=== PATIENT | female | born 1940 | race Caucasian/White ===

== ENCOUNTER → 2019-12-12 00:01 | Outpatient (BNVA) | payer MEDICARE, SELFPAY | PROVIDERS: Family Provider Family Medicine; PCP Family Medicine; Visit Provider Family Medicine | DX: E78.5 Hyperlipidemia, unspecified (principal); E03.9 Hypothyroidism, unspecified; M17.0 Bilateral primary osteoarthritis of knee; I10 Essential (primary) hypertension; M79.18 Myalgia, other site; G89.29 Other chronic pain | CPT/HCPCS: 80053; 80061; 84443 ==

== ENCOUNTER → 2020-06-06 11:33 | Outpatient (BNVA) | payer MEDICARE, SELFPAY | PROVIDERS: Family Provider Family Medicine; PCP Family Medicine; Visit Provider Family Medicine | DX: E03.9 Hypothyroidism, unspecified (principal); I10 Essential (primary) hypertension; M10.9 Gout, unspecified; E78.5 Hyperlipidemia, unspecified; E55.9 Vitamin D deficiency, unspecified | CPT/HCPCS: 80053; 80061; 82306; 84443; 84550; 85025 ==

== ENCOUNTER → 2020-12-18 16:03 | Outpatient (BNVA) | payer MEDICARE, SELFPAY | PROVIDERS: Family Provider Family Medicine; PCP Family Medicine; Visit Provider Family Medicine | DX: E03.9 Hypothyroidism, unspecified (principal); E78.5 Hyperlipidemia, unspecified; I10 Essential (primary) hypertension; M17.0 Bilateral primary osteoarthritis of knee | CPT/HCPCS: 80053; 80061; 84443; 85025 ==

== ENCOUNTER → 2021-03-17 16:28 | Outpatient (BNVA) | payer MEDICARE, SELFPAY | PROVIDERS: Family Provider Family Medicine; PCP Family Medicine; Visit Provider Family Medicine | DX: N39.0 Urinary tract infection, site not specified (principal); R31.9 Hematuria, unspecified | CPT/HCPCS: 81003; 87077; 87086; 87184 ==

== ENCOUNTER → 2021-06-26 10:18 | Outpatient (BNVA) | payer MEDICARE, SELFPAY | PROVIDERS: Family Provider Family Medicine; PCP Family Medicine; Visit Provider Nurse Practitioner Family | DX: R06.02 Shortness of breath (principal); N39.0 Urinary tract infection, site not specified; L98.9 Disorder of the skin and subcutaneous tissue, unspecified; E11.9 Type 2 diabetes mellitus without complications; I10 Essential (primary) hypertension; Z68.41 Body mass index [BMI] 40.0-44.9, adult; I70.90 Unspecified atherosclerosis | CPT/HCPCS: 71046; 80053; 83036 ==

== ENCOUNTER 2021-12-10 13:04 | Outpatient (CLI) | payer MEDICARE, SELFPAY ==
--- NOTE | 2021-12-10 13:30 | USCV_ITS ---
Catherine Seymour Age: 81 Gender: F : 1940 Exam Date: 12/10/2021 13:36 Ordering Phys: Tony Jauregui M.D ([email or web address]) Technologist: [place] [facility] [place]: murmur BP: 132 / 75 HR: 80 Rhythm: Sinus Technical Quality: Adequate MEASUREMENTS (Male / Female) Normal Values 2D ECHO LV Diastolic Diameter PLAX 4.0 cm 4.2 - 5.9 / 3.9 - 5.3 cm LV Systolic Diameter PLAX 2.3 cm IVS Diastolic Thickness 1.1 cm 0.6 - 1.0 / 0.6 - 0.9 cm IVS Systolic Thickness 1.5 cm LVPW Diastolic Thickness 0.9 cm 0.6 - 1.0 / 0.6 - 0.9 cm LVPW Systolic Thickness 1.1 cm LVOT Diameter 2.0 cm LV Ejection Fraction 2D Teich 73.8 % LV Ejection Fraction MOD 2C 69.3 % LV Ejection Fraction 2C AL 72.2 % LA Diameter 4.3 cm Aorta at Sinotubular Diameter 1.9 cm IVC Diameter 1.8 cm M-MODE Aortic Annulus Diameter 2.9 cm LA Ao Ratio MM 1.7 DOPPLER AV Peak Velocity 155.3 cm/s LVOT Peak Velocity 110.0 cm/s AV Area Cont Eq vti 2.4 cm squared AV Area Cont Eq pk 2.3 cm squared MV Area PHT 5.0 cm squared Mitral E to A Ratio 0.9 MV E' Velocity 39.5 cm/s Mitral E to MV E' Ratio 8.0 Mitral E to LV E' Lateral Ratio 6.6 Mitral E to LV E' Septal Ratio 10.4 TR Peak Velocity 130.0 cm/s TR Peak Gradient 6.8 mmHg Right Atrial Pressure 3.0 mmHg Pulmonary Artery Systolic Pressu 9.8 mmHg PV Peak Velocity 89.0 cm/s FINDINGS Left Ventricle Normal left ventricular size. LV systolic function is normal with EF of 55-60%. No regional wall motion abnormalities. Grade 1 diastolic dysfunction Right Ventricle The right ventricle is normal in size and function. Right Atrium The right atrium is normal in size. Left Atrium The left atrium is dilated Mitral Valve Structurally normal mitral valve without significant stenosis or prolapse. There is mild mitral regurgitation. Aortic Valve Structurally normal aortic valve without significant sclerosis or stenosis. There is no aortic regurgitation. Tricuspid Valve Structurally normal tricuspid valve without significant stenosis. Trace tricuspid regurgitation. Insufficient TR jet to calculate RVSP Pulmonic Valve Not well visualized Pericardium Normal pericardium without effusion. Aorta Normal ascending aorta dimension. IVC CONCLUSIONS LV systolic function is normal with EF of 55-60% Grade 1 diastolic dysfunction Left atrium is dilated Mild mitral regurgitation Trace tricuspid regurgitation No comparison studies are available Tony Jauregui MD (Electronically Signed) Final Date: 20 Dec 2021 23:12 S
== END 2021-12-10 13:05 | disposition home or self-care (01) ==
LOC: RAD 13:08
PROVIDERS: Family Provider Family Medicine; PCP Family Medicine; Visit Provider Internal Medicine
DX: I25.10 Atherosclerotic heart disease of native coronary artery without angina pectoris (principal); R06.02 Shortness of breath; G47.33 Obstructive sleep apnea (adult) (pediatric); E66.9 Obesity, unspecified; I10 Essential (primary) hypertension; E78.5 Hyperlipidemia, unspecified; F41.9 Anxiety disorder, unspecified; E11.9 Type 2 diabetes mellitus without complications; Z68.41 Body mass index [BMI] 40.0-44.9, adult
CPT/HCPCS: 93306; 99214

== ENCOUNTER → 2022-01-13 14:06 | Outpatient (BNVA) | payer MEDICARE, SELFPAY | PROVIDERS: Family Provider Family Medicine; PCP Family Medicine; Visit Provider Family Medicine | DX: E03.9 Hypothyroidism, unspecified (principal); E11.9 Type 2 diabetes mellitus without complications; E55.9 Vitamin D deficiency, unspecified; E78.5 Hyperlipidemia, unspecified | CPT/HCPCS: 80053; 80061; 82306; 83036; 84443; 84550; 85025 ==

== ENCOUNTER → 2022-01-23 11:15 | Outpatient (BNVA) | payer MEDICARE, SELFPAY | PROVIDERS: Family Provider Family Medicine; PCP Family Medicine; Visit Provider Family Medicine | DX: E87.6 Hypokalemia (principal) | CPT/HCPCS: 84132 ==

== ENCOUNTER → 2022-02-03 10:23 | Outpatient (BNVA) | payer MEDICARE, SELFPAY | PROVIDERS: Family Provider Family Medicine; PCP Family Medicine; Visit Provider Family Medicine | DX: E87.6 Hypokalemia (principal) | CPT/HCPCS: 80048 ==

== ENCOUNTER → 2022-03-18 10:17 | Outpatient (BNVA) | payer MEDICARE, SELFPAY | PROVIDERS: Family Provider Family Medicine; PCP Family Medicine; Visit Provider Family Medicine | DX: E87.6 Hypokalemia (principal) | CPT/HCPCS: 80048 ==

== ENCOUNTER → 2022-03-27 11:23 | Outpatient (BNVA) | payer MEDICARE, SELFPAY | PROVIDERS: Family Provider Family Medicine; PCP Family Medicine; Visit Provider Family Medicine | DX: N39.0 Urinary tract infection, site not specified (principal); Z79.891 Long term (current) use of opiate analgesic; M17.0 Bilateral primary osteoarthritis of knee | CPT/HCPCS: 80307; 81003 ==

== ENCOUNTER → 2022-08-04 13:03 | Outpatient (BNVA) | payer MEDICARE, SELFPAY | PROVIDERS: Family Provider Family Medicine; PCP Family Medicine; Visit Provider Internal Medicine | DX: I25.10 Atherosclerotic heart disease of native coronary artery without angina pectoris (principal); G47.33 Obstructive sleep apnea (adult) (pediatric); E66.9 Obesity, unspecified; Z68.41 Body mass index [BMI] 40.0-44.9, adult; E78.5 Hyperlipidemia, unspecified; F41.9 Anxiety disorder, unspecified; I12.9 Hypertensive chronic kidney disease with stage 1 through stage 4 chronic kidney disease, or unspecified chronic kidney disease; E11.22 Type 2 diabetes mellitus with diabetic chronic kidney disease; N18.9 Chronic kidney disease, unspecified; Z79.84 Long term (current) use of oral hypoglycemic drugs | CPT/HCPCS: 99214 ==

== ENCOUNTER → 2022-10-09 11:15 | Outpatient (BNVA) | payer MEDICARE, SELFPAY | PROVIDERS: Family Provider Family Medicine; PCP Family Medicine; Visit Provider Family Medicine | DX: E03.9 Hypothyroidism, unspecified (principal); E78.5 Hyperlipidemia, unspecified; G47.00 Insomnia, unspecified; E11.22 Type 2 diabetes mellitus with diabetic chronic kidney disease; I12.9 Hypertensive chronic kidney disease with stage 1 through stage 4 chronic kidney disease, or unspecified chronic kidney disease; N18.9 Chronic kidney disease, unspecified | CPT/HCPCS: 80053; 80061; 83036; 84443; 84550; 85025 ==

== ENCOUNTER → 2024-04-18 16:00 | Outpatient (BNVA) | payer MEDICARE, SELFPAY | PROVIDERS: Family Provider Family Medicine; PCP Family Medicine; Visit Provider Family Medicine | DX: I10 Essential (primary) hypertension (principal); G47.00 Insomnia, unspecified; E78.5 Hyperlipidemia, unspecified; E03.9 Hypothyroidism, unspecified; N18.9 Chronic kidney disease, unspecified | CPT/HCPCS: 80053; 80061; 84443; 85025 ==

== ENCOUNTER → 2024-06-01 11:13 | Outpatient (BNVA) | payer MEDICARE, SELFPAY | PROVIDERS: Family Provider Family Medicine; PCP Family Medicine; Visit Provider Family Medicine | DX: E03.9 Hypothyroidism, unspecified (principal); N18.9 Chronic kidney disease, unspecified; R74.8 Abnormal levels of other serum enzymes; D72.829 Elevated white blood cell count, unspecified | CPT/HCPCS: 80053; 84443; 85025 ==

== ENCOUNTER → 2024-06-05 08:41 | Outpatient (BNVA) | payer MEDICARE, SELFPAY | PROVIDERS: Family Provider Family Medicine; PCP Family Medicine; Visit Provider Family Medicine | DX: R74.8 Abnormal levels of other serum enzymes (principal); R74.01 Elevation of levels of liver transaminase levels | CPT/HCPCS: 80074; 82728; 82977; 83540; 84466; 85610 ==

== ENCOUNTER 2024-06-16 10:03 | Outpatient (CLI) | payer MEDICARE, SELFPAY ==
--- NOTE | 2024-06-16 10:15 | USR_ITS ---
PROCEDURE INFORMATION: Exam: US Abdomen; Limited Exam date and time: 06/16/2024 10:43 AM Age: 83 years old Clinical indication: Abnormal findings; Abnormal lab test; Elevated liver enzymes TECHNIQUE: Imaging protocol: Real time ultrasound of the abdomen with image documentation. Limited exam focused on the region of clinical interest. COMPARISON: No relevant prior studies available. FINDINGS: Liver: Liver is normal in size. No mass. Portal vein is normal. Gallbladder: History of cholecystectomy Pancreas: The pancreas is obscured by bowel gas. Right kidney: No mass. No hydronephrosis. Cortical thinning with the cortex measuring about 9 mm Other findings: Aorta and inferior vena cava are normal as visualized. US/US liver [id number] IMPRESSION: Nonacute findings.
== END 2024-06-16 10:04 | disposition home or self-care (01) ==
PROVIDERS: Family Provider Family Medicine; PCP Family Medicine; Visit Provider Family Medicine
DX: R74.8 Abnormal levels of other serum enzymes (principal); Z90.710 Acquired absence of both cervix and uterus
CPT/HCPCS: 76705

== ENCOUNTER 2024-08-23 20:03 | Outpatient (CLI) | payer MEDICARE, SELFPAY | END 2024-08-23 20:04 | disposition home or self-care (01) | LOC: SLEEP 20:04 | PROVIDERS: Family Provider Family Medicine; Visit Provider Family Medicine | DX: G47.33 Obstructive sleep apnea (adult) (pediatric) (principal) | CPT/HCPCS: 95811 ==

== ENCOUNTER → 2024-11-13 14:45 | Outpatient (BNVA) | payer MEDICARE, SELFPAY | PROVIDERS: PCP Nurse Practitioner Family; Visit Provider Nurse Practitioner Family | DX: I10 Essential (primary) hypertension (principal); E11.9 Type 2 diabetes mellitus without complications; G47.00 Insomnia, unspecified; N18.9 Chronic kidney disease, unspecified; E78.5 Hyperlipidemia, unspecified; G47.33 Obstructive sleep apnea (adult) (pediatric) | CPT/HCPCS: 80053; 80061; 82607; 82977; 83036; 84443; 85025 ==

== ENCOUNTER 2025-02-23 11:40 | Inpatient (IN) | payer MEDICARE, SELFPAY ==
[2025-02-23] VITALS (18 sets, daily range): BP systolic 90–131; BP diastolic 51–92; PULSE 71–107; RESP 12–25; TEMP 36.4–36.8; O2SAT 89–96; BMI 41.7; BMI 41.5
--- NOTE | 2025-02-23 11:44 | XRR_ITS ---
PROCEDURE INFORMATION: Exam: XR Right Hip Exam date and time: 02/23/2025 12:03 PM Age: 84 years old Clinical indication: Injury or trauma; Other: Not specified; Blunt trauma (contusions or hematomas); Right; Hip TECHNIQUE: Imaging protocol: Radiologic exam of the right hip. Views: 1 view hip with pelvis when performed. COMPARISON: No relevant prior studies available. FINDINGS: Bones/joints: There is mildly displaced transcervical fracture of the right hip resulting in slightly increased varus angulation. No dislocation There are [id number] degenerative changes of the right hip, manifested by joint space narrowing and periarticular osteophytes. Soft tissues: Normal. XR/XR hip RT 2-3V wo/w pel* [id number] IMPRESSION: 1. Mildly displaced transcervical fracture of the right hip. 2. Mild osteoarthrosis.
--- NOTE | 2025-02-23 12:04 | XRR_ITS ---
PROCEDURE INFORMATION: Exam: XR Chest Exam date and time: 02/23/2025 12:12 PM Age: 84 years old Clinical indication: Cough and dyspnea; Additional info: Dyspnea/cough TECHNIQUE: Imaging protocol: Radiologic exam of the chest. Views: 1 view. COMPARISON: CR XR chest 2V* [id number] 06/26/2021 10:29 AM FINDINGS: Lungs: Unremarkable. No consolidation. Pleural spaces: Unremarkable. No pleural effusion. No pneumothorax. Heart/Mediastinum: Stable cardiomediastinal silhouette. Bones/joints: Degenerative changes of the spine and shoulder joints seen. XR/XR chest 1V portable [id number] IMPRESSION: No acute findings.
[2025-02-23] MEDS: ondansetron 2 mg/ML SDV 2 mL 4 MG IVP ×2 (12:29→14:26)
[2025-02-23] MEDS: fentaNYL 50 mcg/mL INJ 2mL IVP ×2 (12:31→14:23)
--- NOTE | 2025-02-23 12:31 | ECG_ITS ---
[facility]: 2025-02-23 Pat Name: Catherine Seymour Department: Room: Gender: Female Surgical Scrub Tech: : 1940 Requested By: Ryan Garza Order Number: [id number] Reading MD: MALINDA RICK Measurements Intervals [place] Rate: 106 P: 0 UT: 0 QRS: -68 QRSD: 136 T: 14 QT: 362 QTc: 482 Interpretive Statements ATRIAL FIBRILLATION WITH RAPID VENTRICULAR RESPONSE RIGHT BUNDLE BRANCH BLOCK [120+ ms QRS DURATION, UPRIGHT V1, 40+ ms S IN I/aVL/V4/V5/V6] LEFT ANTERIOR FASCICULAR BLOCK [QRS AXIS <= -45, QR IN I, RS IN II] No previous ECG available for comparison Electronically Signed On 02-26-2025 13:59:40 CDT by MALINDA RIKC [email or web address]
--- NOTE | 2025-02-23 12:33 | PC.NURSE ---
pt states she has not ate this morning. instructed to remain NPO pending surgery
[2025-02-23 12:39] LABS: Hematocrit 46.6 % (36-47); Hemoglobin 15.30 g/dL (11.27-16.99); Mean Corpuscular HGB Conc 32.8 g/dL (30-55); Mean Corpuscular Hemoglobin 30.3 pg (27-33); Mean Corpuscular Volume 92.3 fl (85-98); Nucleated Red Blood Cells % 0 %; Platelet Count 171 10^3/cmm (157-399); Red Blood Count 5.05 10^6/uL (3.85-5.65); White Blood Count 14.49 10^3/uL (3.29-11.43)
[2025-02-23 12:40] LABS: Glucose Urine UA Negative (Normal); Nitrate Urine Negative (Negative); Specific Gravity, Urine 1.013 (1.005-1.030)
[2025-02-23 12:45] LABS: Add Urine Microscopic? YES
[2025-02-23 13:12] LABS: Alanine Aminotransferase 365 U/L (0-33); Albumin Level 3.7 g/dL (3.5-5.2); Alkaline Phosphatase 246 U/L (35-105); Aspartate Amino Transferase 290 U/L (0-32); Blood Urea Nitrogen 26 mg/dL (8-23); Calcium 9.3 mg/dL (8.5-10.5); Carbon Dioxide 18 mmol/L (22-29); Chloride 103 mmol/L (98-107); Creatinine Clr Calc Pharmacy 47.0686; Globulin 3.6 g/dL (1.3-4.6); Glucose 117 mg/dL (65-115); Osmolality Calculated 288 mOsm/kg (285-295); Sodium 136 mmol/L (136-145); Total Protein 7.3 g/dL (6.6-8.7)
--- NOTE | 2025-02-23 13:28 | PC.PHAR ---
Pt went to OR-phoned [facility] for current med list. Verified by Rosa [facility] [phone].
--- NOTE | 2025-02-23 13:37 | W.ED.FALL ---
HPI - Fall General: Chief Complaint: Fall Stated Complaint: right hip pain Time Seen by Provider: 02/23/25 11:43 History of Present Illness: 84-year-old female arrives to the emergency room via ambulance after ground-level mechanical fall at home. Patient states she was standing walking felt like her leg gave out from underneath her she fell to the ground she was able to crawl back towards her bed this originally happened early this morning around 730 she arrived here at 1140. She denies striking her head no loss consciousness she is not on any anticoagulants. No chest pain or shortness of breath no other injury Associated symptoms-after fall: Denies abdominal pain, chest pain or neck pain Related Data Home Medications ?Medication ?Instructions ?Recorded ?Confirmed diphenhydramine HCl 25 mg capsule 25 mg PO .bedtime PRN sleep 12/02/20 02/23/25 (Benadryl) amitriptyline 50 mg tablet 50 mg PO .qhs 02/23/25 02/23/25 amlodipine 10 mg tablet 10 mg PO DAILY 02/23/25 02/23/25 atenolol 50 mg tablet 50 mg PO BID 02/23/25 02/23/25 irbesartan 150 mg tablet 150 mg PO DAILY 02/23/25 02/23/25 isosorbide mononitrate 30 mg 30 mg PO DAILY 02/23/25 02/23/25 tablet,extended release 24 hr potassium chloride 20 mEq 20 meq PO BID 02/23/25 02/23/25 tablet,extended release Previous Rx's ?Medication ?Instructions ?Recorded levothyroxine 112 mcg tablet 112 mcg PO DAILY #90 tabs 11/13/24 auto-titrating cpap 9-13cm #1 ea 11/29/24 triamcinolone acetonide 0.1 % 1 applic topical BID #80 grams 02/09/25 topical cream Allergies Allergy/AdvReac Type Severity Reaction Status Date / Time morphine Allergy Severe ALGY-Anaphy Verified 02/23/25 11:48 laxis Penicillins Allergy Severe ALGY-Anaphy Verified 02/23/25 11:48 laxis ciprofloxacin (From Cipro) Allergy Unknown Verified 02/23/25 11:48 codeine Allergy Unknown Verified 02/23/25 11:48 NSAIDS (Non-Steroidal Allergy Unknown Verified 02/23/25 11:48 Anti-Inflamma hydrochlorothiazide AdvReac Severe kidney Verified 02/23/25 11:48 failure Review of Systems Const: Denies: fever(s) or chills Card: Denies: chest pain Resp: Denies: dyspnea GI: Denies: abdominal pain : Denies: dysuria, urinary frequency or urinary urgency Musc: Reports: joint pain; Denies: neck pain or back pain Skin/Breast: Denies: rash PFSH ED PFSH: Medical History Hypokalemia Enrolled in chronic care management History of seizures SOB (shortness of breath) Obesity Hypertension Chronic musculoskeletal pain Dyslipidemia Insomnia CKD (chronic kidney disease) ESTHELA (obstructive sleep apnea) ASHD (arteriosclerotic heart disease) Anxiety Osteoarthritis of knees, bilateral Hypothyroidism Gout Refill allopurinol. Stable. Diabetes Surgical History Hx of eye surgery Hx of cataract extraction History of bilateral carpal tunnel release Hx of cholecystectomy Hx of hysterectomy 1972 History of lobectomy of lung 1966 Family History Son Clotting disorder CAD (coronary artery disease) Father CAD (coronary artery disease) Mother CAD (coronary artery disease) Stroke Lung disease Other TIA (transient ischemic attack) Denies family history of Diabetes Dementia Chronic kidney disease (CKD) Suicide Anesthesia complication Bleeding disorder Cancer Social History Smoking and tobacco/nicotine status: never used tobacco/nicotine Second hand smoke exposure: No Alcohol intake: never Substance/Drug Use: never Caregiver/support person: Yes (son) Lives independently: Yes Household members: children Marital status: / Current occupational status: retired Current gender identity: Female Special ivan needs: No Agree to transfusion: Yes Physical Exam Const: ORIENTATION/CONSCIOUSNESS: Yes awake, Yes oriented to person, Yes oriented to place and Yes oriented to time HENMT: COMMON NORMALS: normocephalic, atraumatic and hearing grossly normal bilaterally HEAD & SCALP: normocephalic and atraumatic Resp: COMMON NORMALS: normal respiratory effort, No retractions, No use of accessory muscles and clear to auscultation bilaterally AUSCULTATION: clear to auscultation bilaterally Cardio: COMMON NORMALS: regular rate, regular rhythm and No murmurs present (Cardio) RATE: regular rate RHYTHM: regular rhythm GI: COMMON NORMALS: Soft to palpation and No hepatosplenomegaly present AUSCULTATION: Yes normoactive bowel sounds PALPATION: Yes Soft to palpation, No Tenderness to palpation present (GI), No Guarding due to palpation present (GI) and Yes No hepatosplenomegaly present Extremity: COMMON NORMALS: normal to inspection, capillary refill normal, no clubbing, cyanosis or edema, no calf tenderness and no pedal edema OTHER: Right leg externally rotated and mildly shortened dorsalis pedis posterior tibialis pulses normal. Right lower extremity neurovascularly intact Neuro: SENSORIUM/ORIENTATION: Yes oriented to person, Yes oriented to place and Yes oriented to time Skin: COMMON NORMALS: no rashes or lesions noted GENERAL SKIN EXAM: no rashes or lesions noted Course Vital Signs: Vital signs: Vital Signs Temperature 98.3 F 02/23/25 13:10 Pulse Rate 103 H 02/23/25 13:10 Respiratory Rate 18 02/23/25 13:10 Blood Pressure 131/92 02/23/25 13:10 Pulse Oximetry 92 02/23/25 13:10 Oxygen Delivery Me thod Nasal Cannula 02/23/25 13:10 Oxygen Flow Rate 2 02/23/25 13:10 MDM - Fall Medical Decision Making Acute right femoral neck fracture. Patient has not eaten since last night is not on any anticoagulants. Will admit to hospitalist service consult orthopedics. Patient left the emergency department directly to surgery for ORIF. Chart reviewed. I did advise Dr. Sosa patient will be going to surgery this afternoon. EKG not completed in the ER coordinator contacted surgery to advise them. Medical Records I reviewed the patient's medical records. Lab Data I reviewed the patient's lab results. 02/23/25 12:30 02/23/25 12:30 Radiology Impressions Hip/Pelvis X-Ray 02/23/25 11:44 IMPRESSION: 1. Mildly displaced transcervical fracture of the right hip. 2. Mild osteoarthrosis. Chest X-Ray 02/23/25 12:04 IMPRESSION: No acute findings. Laboratory Results WBC 14.49 10^3/uL (3.29-11.43) H 02/23/25 12:30 RBC 5.05 10^6/uL (3.85-5.65) 02/23/25 12:30 Hgb 15.30 g/dL (11.27-16.99) 02/23/25 12:30 Hct 46.6 % (36-47) 02/23/25 12:30 MCV 92.3 fl (85-98) 02/23/25 12:30 MCH 30.3 pg (27-33) 02/23/25 12: MCHC 32.8 g/dL (30-55) 02/23/25 12:30 RDW 14.0 % (12.1-15.1) 02/23/25 12:30 Plt Count 171 10^3/cmm (157-399) 02/23/25 12: MPV 10.5 fL (7.4-10.4) H 02/23/25 12:30 Neut % (Auto) 87.9 % 02/23/25 12: Lymph % (Auto) 6.1 % 02/23/25 12: [place] % (Auto) 4.7 % 02/23/25 12:30 Eos % (Auto) 0.4 % 02/23/25 12:30 Baso % (Auto) 0.3 % 02/23/25 12:30 Neut # (Auto) 12.73 10^3/uL (1.8-7.7) H 02/23/25 12:30 Lymph # (Auto) 0.9 10^3/uL (0.8-4.8) 02/23/25 12:30 [place] # (Auto) 0.7 10^3/uL (0.2-0.9) 02/23/25 12:30 Eos # (Auto) 0.1 10^3/uL (0.0-0.8) 02/23/25 12:30 Baso # (Auto) 0.1 10^3/uL (0.0-0.1) 02/23/25 12: Nucleated RBC % (auto) 0 % 02/23/25 12: Nucleated RBCs # 0.0 /100WBC 02/23/25 12:30 Sodium 136 mmol/L (136-145) 02/23/25 12: Chloride 103 mmol/L (98-107) 02/23/25 12:30 GFR Calculation Not Reportable 02/23/25 12:30 Calculated Osmolality 288 mOsm/kg (285-295) 02/23/25 12:30 Calcium 9.3 mg/dL (8.5-10.5) 02/23/25 12:30 Total Bilirubin 0.4 mg/dL (0.15-1.2) 02/23/25 12:30 Total Protein 7.3 g/dL (6.6-8.7) 02/23/25 12:30 Albumin 3.7 g/dL (3.5-5.2) 02/23/25 12:30 Globulin 3.6 g/dL (1.3-4.6) 02/23/25 12:30 Urine Color Yellow (Yellow) 02/23/25 12:30 Urine Appearance Clear (CLEAR) 02/23/25 12:30 Urine pH 5.5 (5-7) 02/23/25 12:30 Ur Specific [place] 1.013 (1.005-1.030) 02/23/25 12:30 Urine Protein 2+ (Negative) A 02/23/25 12:30 Urine Glucose (UA) Negative (Normal) 02/23/25 12:30 Urine Ketones Negative (Negative) 02/23/25 12:30 Urine Blood Negative (Negative) 02/23/25 12:30 Urine Nitrate Negative (Negative) 02/23/25 12:30 Urine Bilirubin Negative (Negative) 02/23/25 12:30 Urine Urobilinogen 0.2 mg/dL (Negative) 02/23/25 12:30 Ur Leukocyte Esterase Negative (Negative) 02/23/25 12:30 Urine RBC 0-2 /hpf (0-2) 02/23/25 12:30 Urine WBC 0-5 /hpf (0-5) 02/23/25 12:30 Ur Squamous Epith Cells 0-5 /hpf (0-5) 02/23/25 12:30 Amorphous Sediment Not Reportable 02/23/25 12:30 Urine Bacteria None seen /hpf (NONE) 02/23/25 12:30 Hyaline Casts 0.40 /lpf 02/23/25 12:30 All radiology interpretation(s) finalized by discharge Discharge Plan Discharge Patient Disposition: Admitted As Inpatient Clinical Impression: Closed fracture of neck of right femur, Hypertension, Hypothyroidism Condition: Stable Coding Level of Care Code ED Public Employment Mediator for Deng Duggan
--- NOTE | 2025-02-23 13:46 | PC.NURSE ---
EKG not completed prior to pt going to surgery, Dr. Perry aware
[2025-02-23 13:58] LABS: INR 1.00 (0.8-1.2); Prothrombin Time 13.90 SECONDS (12.1-14.9)
--- NOTE | 2025-02-23 13:59 | PM.HP ---
Providers/Chief Complaint Admitting Physician: Dr. Banegas. Primary Care Provider: IVET Mayorga Chief Complaint: right hip pain History of Present Illness Catherine Seymour is a 84 year old female presenting with mechanical fall resulting in right hip fracture. She states her right knee buckled this AM, as has happened before, and she fell onto her right hip. No other injuries. She also fell about 3 weeks ago onto her tailbone. She did not seek medical intervention at that time. She also states she has had syncopal episodes for the last 80 years, which have been worse for the last 5-6 months where she becomes lightheaded and sometimes falls, usually without significant injury. Sometimes she will have multiple episodes in a day. She presents for right hip fracture evaluation and treatment. Review of Systems Const: Denies: fever(s), chills or body aches Eyes: Denies: change in vision ENMT: Denies: throat pain or hoarseness Card: Denies: chest pain or palpitations Resp: Denies: dyspnea GI: Denies: abdominal pain, nausea or vomiting : Denies: dysuria, urinary urgency or urinary hesitancy Musc: Reports: other (hip pain); Denies: neck pain or back pain Skin/Breast: Denies: rash, pruritus or erythema Neuro: Denies: headache(s), numbness in extremities, vertigo or confusion Psych: Denies: anxiety or depression Medications/Allergies Home Medications ?Medication ?Instructions ?Recorded ?Confirmed ?Last Taken ?Type diphenhydramine HCl 25 mg capsule 25 mg PO .bedtime PRN sleep 12/02/20 02/23/25 Unknown History (Benadryl) levothyroxine 112 mcg tablet 112 mcg PO DAILY #90 tabs 11/13/24 02/23/25 Unknown Rx auto-titrating cpap 9-13cm #1 ea 11/29/24 02/23/25 Unknown Rx triamcinolone acetonide 0.1 % 1 applic topical BID #80 grams 02/09/25 02/23/25 Unknown Rx topical cream amitriptyline 50 mg tablet 50 mg PO .qhs 02/23/25 02/23/25 Unknown History amlodipine 10 mg tablet 10 mg PO DAILY 02/23/25 02/23/25 Unknown History atenolol 50 mg tablet 50 mg PO BID 02/23/25 02/23/25 Unknown History irbesartan 150 mg tablet 150 mg PO DAILY 02/23/25 02/23/25 Unknown History isosorbide mononitrate 30 mg 30 mg PO DAILY 02/23/25 02/23/25 Unknown History tablet,extended release 24 hr potassium chloride 20 mEq 20 meq PO BID 02/23/25 02/23/25 Unknown History tablet,extended release Allergies Allergy/AdvReac Type Severity Reaction Status Date / Time morphine Allergy Severe ALGY-Anaphy Verified 02/23/25 11:48 laxis Penicillins Allergy Severe ALGY-Anaphy Verified 02/23/25 11:48 laxis ciprofloxacin (From Cipro) Allergy Unknown Verified 02/23/25 11:48 codeine Allergy Unknown Verified 02/23/25 11:48 NSAIDS (Non-Steroidal Allergy Unknown Verified 02/23/25 11:48 Anti-Inflamma hydrochlorothiazide AdvReac Severe kidney Verified 02/23/25 11:48 failure PFSH Acute PFSH: Medical History (Updated 02/23/25 @ 13:49 by Ryan Perry DO) Hypokalemia Enrolled in chronic care management History of seizures SOB (shortness of breath) Obesity Hypertension Chronic musculoskeletal pain Dyslipidemia Insomnia CKD (chronic kidney disease) ESTHELA (obstructive sleep apnea) ASHD (arteriosclerotic heart disease) Anxiety Osteoarthritis of knees, bilateral Hypothyroidism Gout Refill allopurinol. Stable. Diabetes Surgical History Hx of eye surgery Hx of cataract extraction History of bilateral carpal tunnel release Hx of cholecystectomy Hx of hysterectomy 1972 History of lobectomy of lung 1966 Family History Son Clotting disorder CAD (coronary artery disease) Father CAD (coronary artery disease) Mother CAD (coronary artery disease) Stroke Lung disease Other TIA (transient ischemic attack) Denies family history of Diabetes Dementia Chronic kidney disease (CKD) Suicide Anesthesia complication Bleeding disorder Cancer Social History Smoking and tobacco/nicotine status: never used tobacco/nicotine Second hand smoke exposure: No Alcohol intake: never Substance/Drug Use: never Caregiver/support person: Yes (son) Lives independently: Yes Household members: children Marital status: / Current occupational status: retired Current gender identity: Female Special ivan needs: No Agree to transfusion: Yes Vitals/I&O/Wt Last Vital Signs Temp 98.3 F 02/23/25 13:10 Pulse 103 H 02/23/25 13:10 Resp 18 02/23/25 13:10 BP 131/92 02/23/25 13:10 Pulse Ox 92 02/23/25 13:10 O2 Del Method Nasal Cannula 02/23/25 13:10 O2 Flow Rate 2 02/23/25 13:10 02/22/25 02/23/25 02/23/25 22:59 06:59 14:59 Intake Total 200 / 200 Balance 200 / 200 Weight last 48 hrs Weight 100.153 kg Physical Exam Const: COMMON NORMALS: apparent distress NUTRITIONAL APPEARANCE: obese HENMT: COMMON NORMALS: normocephalic and atraumatic Eye: COMMON NORMALS: Equal, round and reactive pupils present Neck/C-Spine: COMMON NORMALS: supple Resp: COMMON NORMALS: negative for normal respiratory effort and negative for clear to auscultation bilaterally Cardio: COMMON NORMALS: regular rate, regular rhythm, No gallops present (Cardio), No murmurs present (Cardio) and No rub (Cardio) GI: COMMON NORMALS: Soft to palpation, non-tender and no masses Extremity: OTHER: Right hip pain Neuro: COMMON NORMALS: patient oriented x3 and CN's II-XII intact bilaterally Psych: COMMON NORMALS: mental status grossly normal, Normal thought process present, normal affect and speech normal Skin: COMMON NORMALS: no rashes or lesions noted and no wounds Urinary Catheter Management: E[place]: Cath Placed During This Visit: yes Urinary Catheter Date of Insertion: 02/23/25 Urinary Catheter Time of Insertion: 12:33 Data 02/23/25 12:30 02/23/25 12:30 A&P Assessment and plan 1. Closed fracture of neck of right femur: Plan: 84 year old female presenting after mechanical fall with right hip fracture Right hip fracture - CT with mildly displaced transcervical fracture of the right hip - mgmt per ortho, surgery today anxiety/depression - cont. amitriptyline HTN - cont. amlodipine, atenolol, irbesartan, imdur Hypothyroidism - cont. levothyroxine Insomnia - benadryl PRN for sleep Diet: advance when cleared by ortho PPx: hold AC for surgery, restart per ortho recs after surgery Disposition - home meds continued PDMP PDMP Reviewed: Not Reviewed Attestations Medical Necessity Statement*: INpatient admisison anticipate > 2 midnights for hip fracture Time Spent in Patient Care: 16 - 35 minutes (>than 50% of time spent in counselling and/or direct pt care on unit). Coding Level of Care Code Acute Code for Chg Fwd Diagnoses Closed fracture of neck of right femur S72.001A
[2025-02-23 14:00] LABS: Partial Thromboplastin Time 33.1 SECONDS (23.9-36.7)
[2025-02-23 14:01] LABS: Anion Gap 19.0 (5-19); Potassium 4.0 mmol/L (3.5-5.1)
--- NOTE | 2025-02-23 14:17 | P.ANESASSM_ITS ---
Pre-Anesthetic Assessment Height/Weight: Height 1.55 m Weight 100.153 kg Temp Pulse Resp BP Pulse Ox O2 Del Method O2 Flow Rate 98.3 F 103 H 18 131/92 92 Nasal Cannula 2 02/23/25 13:10 02/23/25 13:10 02/23/25 13:10 02/23/25 13:10 02/23/25 13:10 02/23/25 13:10 02/23/25 13:10 Operation Date: 02/23/25 15:45 Proposed Procedures p Hemiarthroplasty Hip(Right) - Neel Davila, DO Familial anesthetic complications: Slow to wake Was Beta Vida taken within 24 hours: Yes Was Clonidine taken within 24 hours: N/A Last intake: Intake Last Liquid Date 02/23/25 Last Liquid Time 01:00 Last Solid Date 02/23/25 Last Solid Time 05:00 Social No alcohol and No tobacco Exam alert, oriented x 3, clear to auscultation bilaterally and regular rate & rhythm Airway Mallampati: Class II Dentition: other (none) Pulmonary Sleep Apnea CV/HEM Coronary Artery Disease and Hypertension 2021 echo CONCLUSIONS LV systolic function is normal with EF of 55-60% Grade 1 diastolic dysfunction Left atrium is dilated Mild mitral regurgitation Trace tricuspid regurgitation No comparison studies are available Chronic Renal Insufficiency GI Gastroesophageal Reflux Disease Anesthetic Plan ASA status: 3 Anesthesia: General Risk of > 500 ml blood loss (7ml/kg in children): No Medications/Allergies Home Medications ?Medication ?Instructions ?Recorded ?Confirmed ?Last Taken ?Type diphenhydramine HCl 25 mg capsule 25 mg PO .bedtime CO N sleep 12/02/20 02/23/25 Unknown History (Benadryl) levothyroxine 112 mcg tablet 112 mcg PO DAILY #90 tabs 11/13/24 02/23/25 Unknown Rx auto-titrating cpap 9-13cm #1 ea 11/29/24 02/23/25 Unk nown Rx triamcinolone acetonide 0.1 % 1 applic topical BID #80 grams 02/09/25 02/23/25 Unknown Rx topical cream amitriptyline 50 mg tablet 50 mg PO .qhs 02/23/2508/19 Unknown History amlodipine 10 mg tablet 10 mg PO DAILY 02/23/2508/19 Unknown History atenolol 50 mg tablet 50 mg PO BID 02/23/25 Unknown History irbesartan 150 mg tablet 150 mg PO DAILY 02/23/2508/19 Unknown History isosorbide mononitrate 30 mg 30 mg PO DAILY 02/23/25 0 02/23/25 Unknown History tablet,extended release 24 hr potassium chloride 20 mEq 20 meq PO BID 02/23/2502/23 Unknown History tablet,extended release Allergies Allergy/AdvReac Type Severity Reaction Status Date / Time morphine Allergy Severe ALGY-Anaphy Verified 02/23/25 11:48 laxis Penicillins Allergy Severe ALGY-Anaphy Verified 02/23/25 11:48 laxis ciprofloxacin (From Cipro) Allergy Unknown Verified 02/23/25 11:48 codeine Allergy Unknown Verified 02/23/25 11:48 NSAIDS (Non-Steroidal Allergy Unknown Verified 02/23/25 11:48 Anti-Inflamma hydrochlorothiazide AdvReac Severe kidney Verified 02/23/25 11:48 [facility] Medical History (Updated 02/23/25 @ 13:49 by Ryan Perry DO) Hypokalemia Enrolled in chronic care management History of seizures SOB (shortness of breath) Obesity Hypertension Chronic musculoskeletal pain Dyslipidemia Insomnia CKD (chronic kidney disease) ESTHELA (obstructive sleep apnea) ASHD (arteriosclerotic heart disease) Anxiety Osteoarthritis of knees, bilateral Hypothyroidism Gout Refill allopurinol. Stable. Diabetes Surgical History Hx of eye surgery Hx of cataract extraction History of bilateral carpal tunnel release Hx of cholecystectomy Hx of hysterectomy 1972 History of lobectomy of lung 1966 Family History Son Clotting disorder CAD (coronary artery disease) Father CAD (coronary artery disease) Mother CAD (coronary artery disease) Stroke Lung disease Other TIA (transient ischemic attack) Denies family history of Diabetes Dementia Chronic kidney disease (CKD) Suicide Anesthesia complication Bleeding disorder Cancer Social History Smoking and tobacco/nicotine status: never used tobacco/nicotine Second hand smoke exposure: No Alcohol intake: never Substance/Drug Use: never Caregiver/support person: Yes (son) Lives independently: Yes Household members: children Marital status: / Current occupational status: retired Current gender identity: Female Special ivan needs: No Agree to transfusion: Yes Data Anesthesia 02/23/25 12:30 02/23/25 12:30 Short CBC 02/23/25 Range/Units 12:30 WBC 14.49 H (3.29-11.43) 10^3/uL Hgb 15.30 (11.27-16.99) g/dL Hct 46.6 (36-47) % MCV 92.3 (85-98) fl Plt Count 171 (157-399) 10^3/cmm Neut % (Auto) 87.9 % Neut # (Auto) 12.73 H (1.8-7.7) 10^3/uL BMP 02/23/25 12:30 Sodium 136 Potassium 4.0 Chloride 103 Carbon Dioxide 18 L BUN 26 H Creatinine 1.0 H Glucose 117 H Calcium 9.3 Liver Function 02/23/25 Range/Units 12:30 Total Bilirubin 0.4 (0.15-1.2) mg/dL AST 290 H (0-32) U/L ALT 365 H (0-33) U/L Alkaline Phosphatase 246 H (35-105) U/L Albumin 3.7 (3.5-5.2) g/dL Urine 02/23/25 Range/Units 12:30 Urine Color Yellow (Yellow) Urine Appearance Clear (CLEAR) Urine pH 5.5 (5-7) Ur Specific [place] 1.013 (1.005-1.030) Urine Protein 2+ A (Negative) Urine Glucose (UA) Negative (Normal) Urine Ketones Negative (Negative) Urine Nitrate Negative (Negative) Urine Bilirubin Negative (Negative) Ur Leukocyte Esterase Negative (Negative) Urine RBC 0-2 (0-2) /hpf Urine WBC 0-5 (0-5) /hpf Coags 02/23/25 12:30 PT 13.90 INR 1.00 APTT 33.1 Cardiac Studies: 2 Echocardiogram 12/10/21
--- NOTE | 2025-02-23 14:19 | PM.CONSULT ---
Providers/Reason For Consult Consulting Physician/Specialty*: Hospitalist Reason for Consult*: Right femoral neck fracture Attending Physician: Neel Davila DO Primary Care Provider: IVET Mayorga History of Present Illness History of Present Illness Catherine Seymour is a 84 year old female had a ground-level fall at home she has been falling more frequently lately. She landed on her right hip and sustained a right femoral neck fracture for which I was consulted for. Review of Systems Const: Denies: fever(s), chills or body aches Eyes: Denies: change in vision ENMT: Denies: throat pain or hoarseness Card: Denies: chest pain or palpitations Resp: Denies: dyspnea GI: Denies: abdominal pain, nausea or vomiting : Denies: dysuria, urinary urgency or urinary hesitancy Musc: Reports: other (hip pain); Denies: neck pain or back pain Skin/Breast: Denies: rash, pruritus or erythema Neuro: Denies: headache(s), numbness in extremities, vertigo or confusion Psych: Denies: anxiety or depression Medications/Allergies Home Medications ?Medication ?Instructions ?Recorded ?Confirmed ?Last Taken ?Type diphenhydramine HCl 25 mg capsule 25 mg PO .bedtime PRN sleep 12/02/20 02/23/25 Unknown History (Benadryl) levothyroxine 112 mcg tablet 112 mcg PO DAILY #90 tabs 11/13/24 02/23/25 Unknown Rx auto-titrating cpap 9-13cm #1 ea 11/29/24 02/23/25 Unknown Rx triamcinolone acetonide 0.1 % 1 applic topical BID #80 grams 02/09/25 02/23/25 Unknown Rx topical cream amitriptyline 50 mg tablet 50 mg PO .qhs 02/23/25 02/23/25 Unknown History amlodipine 10 mg tablet 10 mg PO DAILY 02/23/25 02/23/25 Unknown History atenolol 50 mg tablet 50 mg PO BID 02/23/25 02/23/25 Unknown History irbesartan 150 mg tablet 150 mg PO DAILY 02/23/25 02/23/25 Unknown History isosorbide mononitrate 30 mg 30 mg PO DAILY 02/23/25 02/23/25 Unknown History tablet,extended release 24 hr potassium chloride 20 mEq 20 meq PO BID 02/23/25 02/23/25 Unknown History tablet,extended release Allergies Allergy/AdvReac Type Severity Reaction Status Date / Time morphine Allergy Severe ALGY-Anaphy Verified 02/23/25 11:48 laxis Penicillins Allergy Severe ALGY-Anaphy Verified 02/23/25 11:48 laxis ciprofloxacin (From Cipro) Allergy Unknown Verified 02/23/25 11:48 codeine Allergy Unknown Verified 02/23/25 11:48 NSAIDS (Non-Steroidal Allergy Unknown Verified 02/23/25 11:48 Anti-Inflamma hydrochlorothiazide AdvReac Severe kidney Verified 02/23/25 11:48 failure PFSH Acute PFSH: Medical History (Updated 02/23/25 @ 13:49 by Ryan Perry DO) Hypokalemia Enrolled in chronic care management History of seizures SOB (shortness of breath) Obesity Hypertension Chronic musculoskeletal pain Dyslipidemia Insomnia CKD (chronic kidney disease) ESTHELA (obstructive sleep apnea) ASHD (arteriosclerotic heart disease) Anxiety Osteoarthritis of knees, bilateral Hypothyroidism Gout Refill allopurinol. Stable. Diabetes Surgical History Hx of eye surgery Hx of cataract extraction History of bilateral carpal tunnel release Hx of cholecystectomy Hx of hysterectomy 1972 History of lobectomy of lung 1966 Family History Son Clotting disorder CAD (coronary artery disease) Father CAD (coronary artery disease) Mother CAD (coronary artery disease) Stroke Lung disease Other TIA (transient ischemic attack) Denies family history of Diabetes Dementia Chronic kidney disease (CKD) Suicide Anesthesia complication Bleeding disorder Cancer Social History Smoking and tobacco/nicotine status: never used tobacco/nicotine Second hand smoke exposure: No Alcohol intake: never Substance/Drug Use: never Caregiver/support person: Yes (son) Lives independently: Yes Household members: children Marital status: / Current occupational status: retired Current gender identity: Female Special ivan needs: No Agree to transfusion: Yes Vitals/I&O/Wt Last Vital Signs Temp 98.3 F 02/23/25 13:10 Pulse 103 H 02/23/25 13:10 Resp 18 02/23/25 13:10 BP 131/92 02/23/25 13:10 Pulse Ox 92 02/23/25 13:10 O2 Del Method Nasal Cannula 02/23/25 13:10 O2 Flow Rate 2 02/23/25 13:10 02/22/25 02/23/25 02/23/25 22:59 06:59 14:59 Intake Total 200 / 200 Balance 200 / 200 Weight last 48 hrs Weight 220 lb 12.8 oz Physical Exam Narrative: Alert and oriented x 3 Head is normocephalic atraumatic Respirations are intact No evidence of any rashes or infection 5/5 strength in bilateral upper and lower extremities Sensation intact in all extremities Right leg shortened and externally rotated Urinary Catheter Management: Ely: Cath Placed During This Visit: yes Urinary Catheter Date of Insertion: 02/23/25 Urinary Catheter Time of Insertion: 12:33 Data 02/23/25 12:30 02/23/25 12:30 A&P PDMP PDMP Reviewed: Not Reviewed Coding Level of Care Code Acute Code for Chg Olga Lidia
--- NOTE | 2025-02-23 16:51 | P.OP_ITS ---
Operative Report Date of procedure: February 23, 2025 Pre-op diagnosis: Right femoral neck fracture Post-op diagnosis: same Procedure done: Right hip hemiarthroplasty Surgeon: Neel Davila DO Estimated blood loss (mL): 200 Procedure: Right hip hemiarthroplasty Patient is brought to the operative suite after undergoing anesthesia patient was placed in the lateral decubitus position with the right hip up. All areas of impingement were well-padded. Patient was prepped and draped in normal sterile fashion. Skin incisions made over the right lateral hip IT band was split modified Weaver approach was used. The femoral neck was identified femoral neck cut was made with a saw. Femoral head was then dislocated is measured to be 46 mm. Next attention was brought to the femur. The box toe cementer was used followed by the canal finder followed by the lateralizer. Canal was broached to T3. Next the size 46 mm head was placed on top of the 3 stem from Jannie. Has a -4 neck length. Hip is reduced felt to be stable in all ranges of motion. Wounds irrigated and hips closed in a layered fashion with 0 Vicryl to close IT band and 2-0 Vicryl to close the skin along with Monocryl. Sterile dressings were applied and patient was transferred to the PACU in stable condition.
--- NOTE | 2025-02-23 16:54 | XRR_ITS ---
PROCEDURE INFORMATION: Exam: XR Right Hip Exam date and time: 02/23/2025 5:33 PM Age: 84 years old Clinical indication: Hip pain; Right hip; Post op RT hemiarthroplasty TECHNIQUE: Imaging protocol: Radiologic exam of the right hip. Views: 1 view hip with pelvis when performed. COMPARISON: CR XR hip RT 2-3V wo/w pel* [id number] 02/23/2025 12:03 PM FINDINGS: Bones/joints: Postsurgical changes of right total hip arthroplasty. Alignment appears anatomic. No periprosthetic fracture. Soft tissues: Mild soft tissue fullness and gas about the operative site. XR/XR hip RT 1V wo/w pel [id number] IMPRESSION: Expected postoperative appearance of right total hip arthroplasty with no evidence of complication.
--- NOTE | 2025-02-23 17:45 | ANE.PACU2 ---
Inpatient post-anesthesia follow up: Airway intact: Yes Vital signs: Temperature 98.5 F Pulse Rate 71 Respiratory Rate 20 Blood Pressure 135/84 Pulse Oximetry 95 Oxygen Delivery Me thod Nasal Cannula Oxygen Flow Rate 2 Fraction of Inspir ed Oxygen Hydration adequate: Yes Nausea and vomiting: No Pain level: 1 Mental status: Baseline
[2025-02-23] MEDS: HYDROcodone-acetaminophen 5-325 mg Tablet PO (20:22)
[2025-02-24] VITALS (9 sets, daily range): BP systolic 90–114; BP diastolic 53–72; PULSE 65–84; RESP 14–18; TEMP 36.7–37.2; O2SAT 92–96
[2025-02-24] MEDS: HYDROcodone-acetaminophen 5-325 mg Tablet PO ×5 (00:41→20:55)
[2025-02-24 04:09] LABS: Hematocrit 38.2 % (36-47); Hemoglobin 12.60 g/dL (11.27-16.99); Mean Corpuscular HGB Conc 33.0 g/dL (30-55); Mean Corpuscular Hemoglobin 30.4 pg (27-33); Mean Corpuscular Volume 92.3 fl (85-98); Nucleated Red Blood Cells % 0 %; Platelet Count 147 10^3/cmm (157-399); Red Blood Count 4.14 10^6/uL (3.85-5.65); White Blood Count 11.68 10^3/uL (3.29-11.43)
[2025-02-24 04:26] LABS: Anion Gap 16.7 (5-19); Blood Urea Nitrogen 23 mg/dL (8-23); Calcium 8.6 mg/dL (8.5-10.5); Carbon Dioxide 19 mmol/L (22-29); Chloride 108 mmol/L (98-107); Creatinine Clr Calc Pharmacy 36.1302; Glucose 128 mg/dL (65-115); Osmolality Calculated 293 mOsm/kg (285-295); Potassium 4.7 mmol/L (3.5-5.1); Sodium 139 mmol/L (136-145)
[2025-02-24] MEDS: ondansetron 2 mg/ML SDV 2 mL 4 MG IVP (11:22)
--- NOTE | 2025-02-24 13:57 | PM.PN ---
Subjective Subjective: Patient is doing well this morning pain controlled. She has been up ambulating. Vitals/I&O/Wt Last Vital Signs Temp 98.2 F 02/24/25 11:05 Pulse 72 02/24/25 11:05 Resp 16 02/24/25 11:05 BP 104/53 02/24/25 11:05 Pulse Ox 92 02/24/25 11:05 O2 Del Method Nasal Cannula 02/24/25 11:05 O2 Flow Rate 4 02/24/25 01:00 02/23/25 02/24/25 02/24/25 22:59 06:59 14:59 Intake Total 100 / 300 960 / 1260 50 / 50 Output Total 500 / 1400 Balance -400 / -1100 960 / -140 50 / 50 Weight last 48 hrs Weight 220 lb Weight 220 lb Weight 220 lb 12.8 oz Physical Exam Narrative: Dressing clean dry and intact. Urinary Catheter Management: Ely: Cath Placed During This Visit: yes, but has since been removed by the nurse Reason for Continuing Indwelling Catheter: Decision to DC Catheter Urinary Catheter Date of Insertion: 02/23/25 Urinary Catheter Time of Insertion: 12:33 Date Urinary Catheter Removed: 02/24/25 Time Urinary Catheter Discontinued: 06:07 Data 02/24/25 03:54 02/24/25 03:54 A&P Assessment and plan 1. Closed fracture of neck of right femur with routine healing, subsequent encounter: Postop day 1 right hip hemiarthroplasty PDMP PDMP Reviewed: Not Reviewed Attestations Medical Necessity Statement*: Pain control Coding Level of Care Code Acute Code for [facility] Fwd Diagnoses Closed fracture of neck of right femur with routine healing, subsequent encounter S72.001D Encounter type: subsequent encounter Fracture healing: with routine healing
--- NOTE | 2025-02-24 15:16 | P.PN_ITS ---
Subjective 2 Subjective: S/P right hip hemiarthroplasty per ortho. Vitals/I&O/Wt Last Vital Signs Temp 98.2 F 02/24/25 11:05 Pulse 72 02/24/25 11:05 Resp 16 02/24/25 11:05 BP 104/53 02/24/25 11:05 Pulse Ox 92 02/24/25 11:05 O2 Del Method Nasal Cannula 02/24/25 11:05 O2 Flow Rate 4 02/24/25 01:00 02/24/25 02/24/25 02/24/25 06:59 14:59 22:59 Intake Total 960 / 1260 50 / 50 Balance 960 / -140 50 / 50 Weight last 48 hrs Weight 99.79 kg Weight 99.79 kg Weight 100.153 kg Physical Exam 2 Const: COMMON NORMALS: patient oriented x3; apparent distress NUTRITIONAL APPEARANCE: obese HENMT: COMMON NORMALS: normocephalic and atraumatic HEAD & SCALP: n ormocephalic and atraumatic Eye: COMMON NORMALS: Equal, round and reactive pupils present PUPIL: Yes Equal, round and reactive pupils present Neck/C-Spine: COMMON NORMALS: supple Resp: COMMON NORMALS: negative for normal respiratory effort and negative for clear to auscultation bilaterally AUSCULTATION: not clear to auscultation bilaterally Cardio: COMMON NORMALS: regular rate, regular rhythm, No gallops present (Cardio), No murmurs present (Cardio) and No rub (Cardio) RATE: regular rate RHYTHM: regular rhythm GI: COMMON NORMALS: Soft to palpation, non-tender and no masses PALPATION: Yes Soft to palpation Extremity: OTHER: Right hip pain Neuro: COMMON NORMALS: patient oriented x3 and CN's II-XII intact bilaterally Psych: COMMON NORMALS: mental status grossly normal, Normal thought process present, normal affect and speech normal SPEECH: Yes normal speech THOUGHT PROCESS: Normal thought process present Skin: COMMON NORMALS: no rashes or lesions noted and no wounds GENERAL SKIN EXAM: no rashes or lesions noted Urinary Catheter Management: Ely: Cath Placed During This Visit: yes, but has since been removed by the nurse Reason for Continuing Indwelling Catheter: Decision to DC Catheter Urinary Catheter Date of Insertion: 02/23/25 Urinary Catheter Time of Insertion: 12:33 Date Urinary Catheter Removed: 02/24/25 Time Urinary Catheter Discontinued: 06:07 Data 08/02/25 03:54 02/24/25 03:54 A&P Assessment and plan 1. Closed fracture of neck of right femur with routine healing, subsequent encounter: Plan: 84 year old female presenting after mechanical fall with right hip fracture Right hip fracture - CT with mildly displaced transcervical fracture of the right hip - mgmt per ortho - now s/p right hip hemiarthroplasty - cont. PT/OT anxiety/depression - cont. amitriptyline HTN - cont. amlodipine, atenolol, irbesartan, imdur Hypothyroidism - cont. levothyroxine Insomnia - benadryl PRN for sleep Diet: advance when cleared by ortho PPx: hold AC for surgery, restart per ortho recs after surgery Disposition - home meds continued - PT/OT/CM consulted. May need rehab/snf after discharge. PDMP PDMP Reviewed: Not Reviewed Attestations 2 Medical Necessity Statement*: INpatient admisison anticipate > 2 midnights for hip fracture Time Spent in Patient Care: 16 - 35 minutes (>than 50% of time sp ent in counselling and/or direct pt care on unit) . Coding Level of Care Code Acute Code for Chg Fwd Diagnoses Closed fracture of neck of right femur with routine healing, subsequent encounter S72.001D Encounter type: subsequent encounter Fracture healing: with routine healing
[2025-02-25] VITALS (8 sets, daily range): BP systolic 92–123; BP diastolic 31–71; PULSE 74–96; RESP 16–20; TEMP 36.4–37.1; O2SAT 91–95
[2025-02-25 02:22] LABS: Hematocrit 35.4 % (36-47); Hemoglobin 11.60 g/dL (11.27-16.99); Mean Corpuscular HGB Conc 32.8 g/dL (30-55); Mean Corpuscular Hemoglobin 31.0 pg (27-33); Mean Corpuscular Volume 94.7 fl (85-98); Nucleated Red Blood Cells % 0 %; Platelet Count 127 10^3/cmm (157-399); Red Blood Count 3.74 10^6/uL (3.85-5.65); White Blood Count 12.06 10^3/uL (3.29-11.43)
[2025-02-25 02:46] LABS: Anion Gap 15.3 (5-19); Blood Urea Nitrogen 27 mg/dL (8-23); Calcium 8.2 mg/dL (8.5-10.5); Carbon Dioxide 19 mmol/L (22-29); Chloride 107 mmol/L (98-107); Creatinine Clr Calc Pharmacy 33.5494; Glucose 117 mg/dL (65-115); Osmolality Calculated 290 mOsm/kg (285-295); Potassium 4.3 mmol/L (3.5-5.1); Sodium 137 mmol/L (136-145)
[2025-02-25] MEDS: HYDROcodone-acetaminophen 5-325 mg Tablet PO ×4 (06:21→22:02)
--- NOTE | 2025-02-25 12:37 | P.PN_ITS ---
Subjective 2 Subjective: doing well post surgery. Vitals/I&O/Wt Last Vital Signs Temp 97.5 F L 02/25/25 11:50 Pulse 77 02/25/25 11:50 Resp 16 02/25/25 11:50 BP 112/31 02/25/25 11:50 Pulse Ox 93 02/25/25 11:50 O2 Del Method Nasal Cannula 02/25/25 11:50 O2 Flow Rate 3 02/24/25 20:16 02/24/25 02/25/25 02/25/25 22:59 06:59 14:59 Intake Total 1000 / 1050 968.333 / 2017.333 Balance 1000 / 1050 968.333 / 2017.333 Weight last 48 hrs Weight 99.79 kg Weight 99.79 kg Weight 99.79 kg Physical Exam 2 Const: COMMON NORMALS: patient oriented x3; apparent distress NUTRITIONAL APPEARANCE: obese HENMT: COMMON NORMALS: normocephalic and atraumatic HEAD & SCALP: n ormocephalic and atraumatic Eye: COMMON NORMALS: Equal, round and reactive pupils present PUPIL: Yes Equal, round and reactive pupils present Neck/C-Spine: COMMON NORMALS: supple Resp: COMMON NORMALS: negative for normal respiratory effort and negative for clear to auscultation bilaterally AUSCULTATION: not clear to auscultation bilaterally Cardio: COMMON NORMALS: regular rate, regular rhythm, No gallops present (Cardio), No murmurs present (Cardio) and No rub (Cardio) RATE: regular rate RHYTHM: regular rhythm GI: COMMON NORMALS: Soft to palpation, non-tender and no masses PALPATION: Yes Soft to palpation Extremity: OTHER: Right hip pain Neuro: COMMON NORMALS: patient oriented x3 and CN's II-XII intact bilaterally Psych: COMMON NORMALS: mental status grossly normal, Normal thought process present, normal affect and speech normal SPEECH: Yes normal speech THOUGHT PROCESS: Normal thought process present Skin: COMMON NORMALS: no rashes or lesions noted and no wounds GENERAL SKIN EXAM: no rashes or lesions noted Urinary Catheter Management: Ely: Cath Placed During This Visit: yes, but has since been removed by the nurse Reason for Continuing Indwelling Catheter: Decision to DC Catheter Urinary Catheter Date of Insertion: 02/23/25 Urinary Catheter Time of Insertion: 12:33 Date Urinary Catheter Removed: 02/24/25 Time Urinary Catheter Discontinued: 06:07 Data 02/25/25 01:54 02/25/25 01:54 A&P Assessment and plan 1. Closed fracture of neck of right femur with routine healing, subsequent encounter: Plan: 84 year old female presenting after mechanical fall with right hip fracture Right hip fracture - CT with mildly displaced transcervical fracture of the right hip - mgmt per ortho - now s/p right hip hemiarthroplasty - cont. PT/OT anxiety/depression - cont. amitriptyline HTN - cont. amlodipine, atenolol, irbesartan, imdur Hypothyroidism - cont. levothyroxine Insomnia - benadryl PRN for sleep Diet: advance when cleared by ortho PPx: hold AC for surgery, restart per ortho recs after surgery Disposition - home meds continued - PT/OT/CM consulted. May need rehab/snf after discharge, eval in AM (Wednesday) PDMP PDMP Reviewed: Not Reviewed Attestations 2 Medical Necessity Statement*: INpatient admisison anticipate > 2 midnights for hip fracture Time Spent in Patient Care: 16 - 35 minutes (>than 50% of time sp ent in counselling and/or direct pt care on unit) . Coding Level of Care Code Acute Code for Chg Fwd Diagnoses Closed fracture of neck of right femur with routine healing, subsequent encounter S72.001D Encounter type: subsequent encounter Fracture healing: with routine healing
--- NOTE | 2025-02-25 15:23 | P.PN_ITS ---
Subjective 2 Subjective: Patient is postop day #2 right hip hemiarthroplasty doing well. Vitals/I&O/Wt Last Vital Signs Temp 97.5 F L 02/25/25 11:50 Pulse 96 02/25/25 15:21 Resp 16 02/25/25 11:50 BP 123/62 02/25/25 15:21 Pulse Ox 93 02/25/25 11:50 O2 Del Method Nasal Cannula 02/25/25 11:50 O2 Flow Rate 3 02/24/25 20:16 02/25/25 02/25/25 02/25/25 06:59 14:59 22:59 Intake Total 968.333 / 2017.333 480 / 480 Output Total 400 / 400 Balance 968.333 / 2017.333 80 / 80 Weight last 48 hrs Weight 220 lb Weight 220 lb Weight 220 lb Physical Exam 2 Narrative: Resting comfortably dressings clean dry and intact Urinary Catheter Management: Ely: Cath Placed During This Visit: yes, but has since been removed by the nurse Reason for Continuing Indwelling Catheter: Decision to DC Catheter Urinary Catheter Date of Insertion: 02/23/25 Urinary Catheter Time of Insertion: 12:33 Date Urinary Catheter Removed: 02/24/25 Time Urinary Catheter Discontinued: 06:07 Data 02/25/25 01:54 02/25/25 01:54 A&P Assessment and plan 1. Closed fracture of neck of right femur with routine healing, subsequent encounter: Postop day #2 right hip hemiarthroplasty DC planning [facility] PDMP PDMP Reviewed: Not Reviewed Attestations 2 Medical Necessity Statement*: Pain control Coding Level of Care Code Acute Code for Chg Fwd Diagnoses Closed fracture of neck of right femur with routine healing, subsequent encounter S72.001D Encounter type: subsequent encounter Fracture healing: with routine healing
[2025-02-26 04:00] VITALS: BP 135/84; PULSE 71; RESP 20; TEMP 36.9; O2SAT 95
[2025-02-26 04:46] LABS: Hematocrit 34.9 % (36-47); Hemoglobin 11.30 g/dL (11.27-16.99); Mean Corpuscular HGB Conc 32.4 g/dL (30-55); Mean Corpuscular Hemoglobin 30.5 pg (27-33); Mean Corpuscular Volume 94.3 fl (85-98); Nucleated Red Blood Cells % 0 %; Platelet Count 141 10^3/cmm (157-399); Red Blood Count 3.70 10^6/uL (3.85-5.65); White Blood Count 13.11 10^3/uL (3.29-11.43)
[2025-02-26 05:06] LABS: Anion Gap 15.7 (5-19); Blood Urea Nitrogen 23 mg/dL (8-23); Calcium 8.5 mg/dL (8.5-10.5); Carbon Dioxide 22 mmol/L (22-29); Chloride 106 mmol/L (98-107); Creatinine Clr Calc Pharmacy 36.1302; Glucose 116 mg/dL (65-115); Osmolality Calculated 293 mOsm/kg (285-295); Potassium 4.7 mmol/L (3.5-5.1); Sodium 139 mmol/L (136-145)
[2025-02-26] MEDS: HYDROcodone-acetaminophen 5-325 mg Tablet PO ×2 (06:03→12:49)
--- NOTE | 2025-02-26 07:27 | PM.DCS ---
Discharge Providers Date of Admission: 02/23/25 16:54 Date of Discharge: February 26, 2025 Attending Provider at Admission: Bryant Banegas MD Attending Provider at Discharge: Neel Davila DO Primary Care Provider: IVET Mayorga Diagnoses at Discharge Discharge Diagnosis 1. Closed fracture of neck of right femur with routine healing, subsequent encounter: Reason for Visit Reason for Visit: right hip pain Physical Exam Narrative: Resting comfortably in bed Urinary Catheter Management: Ely: Cath Placed During This Visit: yes, but has since been removed by the nurse Reason for Continuing Indwelling Catheter: Decision to DC Catheter Urinary Catheter Date of Insertion: 02/23/25 Urinary Catheter Time of Insertion: 12:33 Date Urinary Catheter Removed: 02/24/25 Time Urinary Catheter Discontinued: 06:07 Discharge Data Studies Completed and Pending Completed Studies During Hospitalization Category Date Time Status XR chest 1V portable [id number] Stat Exams 02/23/25 12:04 Completed XR hip RT 1V wo/w pel [id number] Routine Exams 02/23/25 16:54 Completed XR hip RT 2-3V wo/w pel* [id number] Stat Exams 02/23/25 11:44 Completed Radiology Impressions Hip/Pelvis X-Ray 02/23/25 11:44 IMPRESSION: 1. Mildly displaced transcervical fracture of the right hip. 2. Mild osteoarthrosis. Chest X-Ray 02/23/25 12:04 IMPRESSION: No acute findings. Hip X-Ray 02/23/25 16:54 IMPRESSION: Expected postoperative appearance of right total hip arthroplasty with no evidence of complication. Laboratory Results WBC 13.11 10^3/uL (3.29-11.43) H 02/26/25 04:06 RBC 3.70 10^6/uL (3.85-5.65) L 02/26/25 04:06 Hgb 11.30 g/dL (11.27-16.99) 02/26/25 04:06 Hct 34.9 % (36-47) L 02/26/25 04:06 MCV 94.3 fl (85-98) 02/26/25 04:06 MCH 30.5 pg (27-33) 02/26/25 04:06 MCHC 32.4 g/dL (30-55) 02/26/25 04:06 RDW 14.7 % (12.1-15.1) 02/26/25 04:06 Plt Count 141 10^3/cmm (157-399) L 02/26/25 04:06 MPV 10.7 fL (7.4-10.4) H 02/26/25 04:06 Neut % (Auto) 72.1 % 02/26/25 04:06 Lymph % (Auto) 12.2 % 02/26/25 04:06 [place] % (Auto) 11.7 % 02/26/25 04:06 Eos % (Auto) 2.3 % 02/26/25 04:06 Baso % (Auto) 0.4 % 02/26/25 04:06 Neut # (Auto) 9.45 10^3/uL (1.8-7.7) H 02/26/25 04:06 Lymph # (Auto) 1.6 10^3/uL (0.8-4.8) 02/26/25 04:06 [place] # (Auto) 1.5 10^3/uL (0.2-0.9) H 02/26/25 04:06 Eos # (Auto) 0.3 10^3/uL (0.0-0.8) 02/26/25 04:06 Baso # (Auto) 0.1 10^3/uL (0.0-0.1) 02/26/25 04:06 Nucleated RBC % (auto) 0 % 02/26/25 04:06 Nucleated RBCs # 0.0 /100WBC 02/26/25 04:06 PT 13.90 SECONDS (12.1-14.9) 02/23/25 12:30 INR 1.00 (0.8-1.2) 02/23/25 12:30 APTT 33.1 SECONDS (23.9-36.7) 02/23/25 12:30 Sodium 139 mmol/L (136-145) 02/26/25 04:06 Potassium 4.7 mmol/L (3.5-5.1) 02/26/25 04:06 Chloride 106 mmol/L (98-107) 02/26/25 04:06 Carbon Dioxide 22 mmol/L (22-29) 02/26/25 04:06 Anion Gap 15.7 (5-19) 02/26/25 04:06 BUN 23 mg/dL (8-23) 02/26/25 04:06 Creatinine 1.3 mg/dL (0.5-0.9) H 02/26/25 04:06 GFR Calculation Not Reportable 02/26/25 04:06 Glucose 116 mg/dL (65-115) H 02/26/25 04:06 Calculated Osmolality 293 mOsm/kg (285-295) 02/26/25 04:06 Calcium 8.5 mg/dL (8.5-10.5) 02/26/25 04:06 Total Bilirubin 0.4 mg/dL (0.15-1.2) 02/23/25 12:30 AST 290 U/L (0-32) H 02/23/25 12:30 ALT 365 U/L (0-33) H 02/23/25 12:30 Alkaline Phosphatase 246 U/L (35-105) H 02/23/25 12:30 Total Protein 7.3 g/dL (6.6-8.7) 02/23/25 12:30 Albumin 3.7 g/dL (3.5-5.2) 02/23/25 12:30 Globulin 3.6 g/dL (1.3-4.6) 02/23/25 12:30 Urine Color Yellow (Yellow) 02/23/25 12:30 Urine Appearance Clear (CLEAR) 02/23/25 12:30 Urine pH 5.5 (5-7) 02/23/25 12:30 Ur Specific [place] 1.013 (1.005-1.030) 02/23/25 12:30 Urine Protein 2+ (Negative) A 02/23/25 12:30 Urine Glucose (UA) Negative (Normal) 02/23/25 12:30 Urine Ketones Negative (Negative) 02/23/25 12:30 Urine Blood Negative (Negative) 02/23/25 12:30 Urine Nitrate Negative (Negative) 02/23/25 12:30 Urine Bilirubin Negative (Negative) 02/23/25 12:30 Urine Urobilinogen 0.2 mg/dL (Negative) 02/23/25 12:30 Ur Leukocyte Esterase Negative (Negative) 02/23/25 12:30 Urine RBC 0-2 /hpf (0-2) 02/23/25 12:30 Urine WBC 0-5 /hpf (0-5) 02/23/25 12:30 Ur Squamous Epith Cells 0-5 /hpf (0-5) 02/23/25 12:30 Amorphous Sediment Not Reportable 02/23/25 12:30 Urine Bacteria None seen /hpf (NONE) 02/23/25 12:30 Hyaline Casts 0.40 /lpf 02/23/25 12:30 Vitals Last Vital Signs Temp 98.5 F 02/26/25 04:00 Pulse 71 02/26/25 04:00 Resp 20 H 02/26/25 04:00 BP 135/84 02/26/25 04:00 Pulse Ox 95 02/26/25 04:00 O2 Del Method Nasal Cannula 02/26/25 04:00 O2 Flow Rate 2 02/26/25 04:00 Discharge Plan Discharge Patient Disposition: Home Condition: Stable Prescriptions: New hydrocodone-acetaminophen 5-325 mg tablet 1 - 2 tab PO .Q4-6H Qty: 40 0RF Eliquis 2.5 mg tablet 2.5 mg PO BID 30 Days Qty: 60 0RF Continued diphenhydramine HCl [Benadryl] 25 mg capsule 25 mg PO .bedtime PRN (Reason: sleep) levothyroxine 112 mcg tablet 112 mcg PO DAILY Qty: 90 1RF (DME) auto-titrating cpap 9-13cm See Rx Instructions .Route .MEDSUPPLY Qty: 1 0RF Rx Instructions: As directed triamcinolone acetonide 0.1 % cream 1 applic topical BID Qty: 80 1RF Rx Instructions: to hands and upper arms isosorbide mononitrate 30 mg tablet extended release 24 hr 30 mg PO DAILY amitriptyline 50 mg tablet 50 mg PO .qhs amlodipine 10 mg tablet 10 mg PO DAILY irbesartan 150 mg tablet 150 mg PO DAILY atenolol 50 mg tablet 50 mg PO BID potassium chloride 20 mEq tablet extended release 20 meq PO BID Discharge Order = DC NOW: Discharge Order (Routine); Ordered 02/26/25 Ordered By: Neel Davila Referrals: Kaity Flowers FNP [Primary Care Provider, Family Practice] Discharge Diet: Advance as tolerated Discharge Activity: Limit activity as instructed Patient Instructions: Acute Wound Care (DC), Opioid Safety, Post Anesthesia Care, Patient Portal & Jovany Instructions Activity Restrictions/Additional Instructions: You are being discharged from the hospital today during which time you have been under the care of Dr. Davila. You had a right femoral neck fracture. You were treated for this injury with right hip hemiarthroplasty. You may resume you normal diet (including any special diets as directed by your primary doctor) as well as your home medications. You should follow up with you primary doctor if you have any questions regarding medication you took prior to your stay in the hospital. You may take your pain medication as prescribed. After the first few days, take your pain medication as needed. Do not drive or drink alcohol while taking your pain medication. Your injury may increase your risk of developing a blood clot,or DVT, in your arm or leg. This could potentially dislodge and travel to your lungs and become a life threatening condition called apulmonary embolus,or PE. You have been prescribed Eliquis to be taken to prevent this. Frequent movement of the legs will also help prevent this from occurring. If you develop any new or worsening cough, chestpain, bloody sputum or shortness of breath, call 911 or go to the EmergencyRoom. Always keep your surgical incision/dressing clean and dry. If you experience increasing pain at your incision site, redness, swelling, increasing discharge, foul odors, or fevers (greater than 100.4), night sweats or chills you should call the office at the above number. If you feel this is an emergency you should be evaluated in the Emergency Department of a nearby hospital. Orthopedic Patient Instructions Summary: Weight Bearing: Weight-bear as tolerated Activity: As tolerated. Diet: Regular. Splint Care: Keep splint clean and dry. Cover with a plastic bag for bathing. Wound Care: Keep dressing clean and dry. Anticoagulation: Eliquis Pain Medication: Take only as needed. Ice, rest and elevation will be of great benefit. Please plan to follow-up [facility] Dr Davila in 2 weeks. You will need to call the clinic [phone] to schedule this visit. Thank you far allowing me to participate in your care. Do not hesitate to call the office with any questions or concerns. Discharge Attestations Time Spent in Discharge Care*: less than 30 min Quality Metrics Clinical Quality Measures [ No reported AMI, CVA or VTE this stay] Coding Level of Care Code Acute Code for [facility] Fwd Diagnoses Closed fracture of neck of right femur with routine healing, subsequent encounter S72.001D Encounter type: subsequent encounter Fracture healing: with routine healing
[2025-02-26 07:45] VITALS: BP 91/60; PULSE 69; RESP 16; TEMP 36.7; O2SAT 93
[2025-02-26 09:20] VITALS: BP 91/60
--- NOTE | 2025-02-26 09:51 | PC.NURSE ---
Patient's discharge order was placed by orthopedic doctor. Patient has not been cleared by hospitalist and is requesting to go to skilled nursing for rehab.
[2025-02-26 11:19] VITALS: BP 113/67; PULSE 77; RESP 16; TEMP 36.3; O2SAT 90
[2025-02-26 13:36] LABS: SARS Covid-2 Antigen Negative (Negative)
--- NOTE | 2025-02-26 14:19 | PC.SOCIAL ---
IMM Updated Updated pt on IMM. No questions voiced. Provided pt a copy. Initialed, dated, & timed a copy & placed in chart.
--- NOTE | 2025-02-26 14:23 | PC.NURSE ---
Report called to [facility] and facility picked patient up in their wheelchair. All IVs removed and questions answered prior to discharge
[2025-02-26 14:26] VITALS: BP 113/67; PULSE 77; RESP 16; TEMP 36.3; O2SAT 90
--- NOTE | 2025-02-26 17:49 | PM.PN ---
Subjective Subjective: The patient was seen in the morning, doing well no acute concerns. Following command with OT PT and doing well. The patient had closed fracture of the neck of the right femur with routine healing and was operated on 23 February 2025 with right hip hemiarthroplasty. Orthopedics been following the patient along with the internal medicine team. Currently stable and to discharge to rehab/SNF for further management and optimization of her health. The patient is stable from internal medicine/hospitalist point of review. Vitals/I&O/Wt Last Vital Signs Temp 97.4 F L 02/26/25 14:26 Pulse 77 02/26/25 14:26 Resp 16 02/26/25 14:26 BP 113/67 02/26/25 14:26 Pulse Ox 90 02/26/25 14:26 O2 Del Method Room Air 02/26/25 11:19 O2 Flow Rate 2 02/26/25 04:00 02/26/25 02/26/25 02/26/25 06:59 14:59 22:59 Intake Total 840 / 840 Output Total 600 / 600 Balance 240 / 240 Weight last 48 hrs Weight 99.7 kg Weight 99.79 kg Physical Exam Narrative: General: Alert oriented x3, patient seen sitting comfortably on the chair, saturating normally at room air, looks euvolemic Cardio: Regular rate rhythm, normal S1-S2, no murmurs rubs gallops, JVD normal Respiratory: Good bilateral air entry, no wheezes no rhonchi appreciated GI: Abdomen soft, nontender, nondistended, normoactive bowel sounds present all 4 quadrants, Neuro: Cranial nerves II to XII intact, strength 5/5, sensation 5/5, no gross neurological deficit Behavior: Appropriate and cooperative Extremities: Pulses 2+, no edema, no cyanosis, status post right hip hemiarthroplasty, no swelling or increased pain or bruise noticed Skin: Visible skin intact, no rashes Urinary Catheter Management: Ely: Cath Placed During This Visit: yes, but has since been removed by the nurse Reason for Continuing Indwelling Catheter: Decision to DC Catheter Urinary Catheter Date of Insertion: 02/23/25 Urinary Catheter Time of Insertion: 12:33 Date Urinary Catheter Removed: 02/24/25 Time Urinary Catheter Discontinued: 06:07 Data 02/26/25 04:06 02/26/25 04:06 A&P Assessment and plan 1. Closed fracture of neck of right femur with routine healing, subsequent encounter: Right hip fracture - CT with mildly displaced transcervical fracture of the right hip - mgmt per ortho - now s/p right hip hemiarthroplasty - cont. PT/OT -Cleared for rehab/SNF from internal medicine/hospitalist perspective and to follow-up with orthopedics plan 2. Other chronic pain: Adequate analgesia to continue 3. Chronic kidney disease, unspecified CKD stage: Continue to monitor renal functions 4. Primary hypertension: Continue amlodipine/atenolol/irbesartan and Imdur 5. Dyslipidemia: To follow-up as outpatient and further optimization of dyslipidemia 6. Other insomnia: Benadryl as needed as for sleep 7. ESTHELA (obstructive sleep apnea): Follow-up as outpatient with pulmonology/PCP 8. Anxiety: Continue amitriptyline 9. Primary osteoarthritis of both knees: Continue with OT PT as outpatient and orthopedics and primary care physician 10. Hypothyroidism, unspecified type: Continue levothyroxine 11. Type 2 diabetes mellitus with diabetic chronic kidney disease, unspecified CKD stage, unspecified whether assistant terminal manager insulin use: Controlled, continue to monitor any symptoms of hyper and hypoglycemia Diet control and follow-up with the primary care physician PDMP PDMP Reviewed: Not Reviewed Attestations Medical Necessity Statement*: With the patient to be discharged today and no need for further hospitalization Coding Level of Care Code 75011 Diagnoses Closed fracture of neck of right femur with routine healing, subsequent encounter S72.001D Encounter type: subsequent encounter Fracture healing: with routine healing Other chronic pain G89.29 Chronic pain type: other chronic pain Chronic kidney disease, unspecified CKD stage N18.9 Chronic kidney disease stage: unspecified stage Primary hypertension I10 Hypertension type: primary hypertension Dyslipidemia E78.5 Other insomnia G47.09 Insomnia type: other insomnia ESTHELA (obstructive sleep apnea) G47.33 Anxiety F41.9 Primary osteoarthritis of both knees M17.0 Osteoarthritis type: primary Hypothyroidism, unspecified type E03.9 Hypothyroidism type: unspecified Type 2 diabetes mellitus with diabetic chronic kidney disease, unspecified CKD stage, unspecified whether assistant terminal manager insulin use E11.22 Diabetes mellitus type: type 2 Diabetes mellitus penitentiary insulin use: unspecified assistant terminal manager insulin use status Diabetes mellitus complication status: with kidney complications Diabetes mellitus complication detail: with chronic kidney disease Chronic kidney disease stage: unspecified stage
== END 2025-02-26 13:40 | disposition skilled nursing facility (03) | DRG 522 ==
LOC: ER 12:47 → OPS 12:56 → MEDSURG 16:55
PROVIDERS: Orthopaedic Surgery; Admitting Provider Internal Medicine; Emergency Provider Family Medicine; PCP Nurse Practitioner Family; Visit Provider Student in an Organized Health Care Education/Training Program
PROC: 0SRR0JZ Replacement of Right Hip Joint, Femoral Surface with Synthetic Substitute, Open Approach (ICD-10-PCS; principal; 2025-02-23 15:15)
DX: S72.031A Displaced midcervical fracture of right femur, initial encounter for closed fracture (principal); W18.30XA Fall on same level, unspecified, initial encounter; F41.9 Anxiety disorder, unspecified; F32.A Depression, unspecified; I12.9 Hypertensive chronic kidney disease with stage 1 through stage 4 chronic kidney disease, or unspecified chronic kidney disease; N18.9 Chronic kidney disease, unspecified; E03.9 Hypothyroidism, unspecified; G47.00 Insomnia, unspecified; I25.10 Atherosclerotic heart disease of native coronary artery without angina pectoris; G47.33 Obstructive sleep apnea (adult) (pediatric); E87.6 Hypokalemia; E78.5 Hyperlipidemia, unspecified
CPT/HCPCS: 36415; 51702; 71045; 73501; 73502; 80048; 80053; 81001; 85025; 85610; 85730; 87426; 93005; 96374; 96375; 97110; 97116; 97161; 97165; 97530; 97535; 99285; C1776; J1100; J2371; J2405; J2704; J3010; J3490; J7030; J9999; P9047

== ENCOUNTER → 2025-03-08 14:08 | Outpatient (BNVA) | payer MEDICARE, SELFPAY | PROVIDERS: PCP Nurse Practitioner Family; Visit Provider Orthopaedic Surgery | DX: Z98.890 Other specified postprocedural states (principal) | CPT/HCPCS: 73502; 99024 ==

== ENCOUNTER 2025-03-21 10:07 | Inpatient (IN) | payer MEDICARE, SELFPAY ==
[2025-03-21] VITALS (11 sets, daily range): BP systolic 83–123; BP diastolic 45–85; PULSE 64–82; RESP 14–18; TEMP 36.6–36.8; O2SAT 91–98; BMI 30.7
--- NOTE | 2025-03-21 10:13 | XR_ITS ---
WS: [id number] Exam: XR chest 1V portable [id number] Date/Time of Exam: 03/21/2025 10:13 AM Reason For Exam: Weakness Comparison 02/23/2025. Lungs are fully expanded and clear. Chronic changes in the LEFT upper lobe. Normal cardiomediastinal silhouette for technique. Moderately advanced DJD of both shoulders. No pleural effusion. XR/XR chest 1V portable [id number] IMPRESSION: 1. No acute cardiopulmonary finding.
--- NOTE | 2025-03-21 10:13 | ECG_ITS ---
[facility] Test Date: 2025-03-21 Pat Name: Catherine Seymour Department: Room: Gender: Female [employer] Inter[employer]ter: : 1940 Requested By: Мария Garza Order Number: [id number] Rolando MD: Toro Keenan M.D. Measurements Intervals [place] Rate: 63 P: 66 W[place]: 186 QRS: -31 QRSD: 100 T: 47 QT: 389 QTc: 400 Interpretive Statements SINUS RHYTHM LEFT AXIS DEVIATION [QRS AXIS < -30] POSSIBLE LATERAL MYOCARDIAL INFARCTION , PROBABLY OLD [30 ms Q WAVE IN I/aVL/V5/V6] Compared to ECG 02/23/2025 14:45:37 Left-axis deviation now present Myocardial infarct finding now present Atrial fibrillation no longer present Right bundle-branch block no longer present Left anterior fascicular block no longer present Electronically Signed On 03-21-2025 22:27:33 CDT by Toro Keenan M.D. [email or web address]
--- NOTE | 2025-03-21 10:14 | ED_ITS ---
HPI - Weakness 2 General: Chief complaint: Weakness Stated complaint: Hypotension Time Seen by Provider: 03/21/25 10:08 History of Present Illness: 84-year-old female with a history of hip surgery about a month ago, obesity, chronic anticoagulation on Eliquis, type 2 diabetes mellitus, obstructive sleep apnea, coronary artery disease, hyperlipidemia, chronic kidney disease and gout who presents to the emergency room with weakness, dizziness and hypotension. Looking at records she completed a 10-day course of Macrobid for UTI a couple of days ago. Says she had been feeling a little bit weak and dizzy yesterday but this morning was quite a bit worse. No known fevers. No dysuria. She has had nausea. No vomiting. No abdominal pain. No chest pain. No cough. No fevers. Related Data Home Medications ?Medication ?Instructions ?Recorded ?Confirmed diphenhydramine HCl 25 mg capsule 25 mg PO .bedtime NJ N sleep 12/02/20 03/21/25 (Benadryl) amitriptyline 50 mg tablet 50 mg PO .qhs 02/23/2502/24 amlodipine 10 mg tablet 10 mg PO DAILY 02/23/2502/24 atenolol 50 mg tablet 50 mg PO BID 02/23/25 irbesartan 150 mg tablet 150 mg PO DAILY 02/23/25 isosorbide mononitrate 30 mg 30 mg PO DAILY 02/23/25 0 03/21/25 tablet,extended release 24 hr potassium chloride 20 mEq 20 meq PO BID 02/23/2503/21 tablet,extended release acetaminophen 325 mg tablet 650 mg PO .Q6H PRN pain/in creased 03/21/25 03/21/25 temp bisacodyl 10 mg rectal suppository 10 mg [place] DAILY PRN Constipation 03/21/25 03/21/25 (Dulcolax (bisacodyl)) hydrocodone 5 mg-acetaminophen 325 1 - 2 tab PO .Q4H 0 03/21/25 03/21/25 mg tablet Previous Rx's ?Medication ?Instructions ?Recorded levothyroxine 112 mcg tablet 112 mcg PO DAILY #90 tabs 11/13/24 auto-titrating cpap 9-13cm #1 ea 11/29/24 triamcinolone acetonide 0.1 % 1 applic topical BID #80 grams 02/09/25 topical cream apixaban 2.5 mg tablet (Eliquis) 2.5 mg PO BID 30 days #60 tabs 02/26/25 Allergies Allergy/AdvReac Type Severity Reaction Status Date / Time morphine Allergy Severe ALGY-Anaphy Verified 03/08/25 09:20 laxis Penicillins Allergy Severe ALGY-Anaphy Verified 03/08/25 09:20 laxis ciprofloxacin (From Cipro) Allergy Unknown Verified 03/08/25 09:20 NSAIDS (Non-Steroidal Allergy Unknown Verified 03/08/25 09:20 Anti-Inflamma hydrochlorothiazide AdvReac Severe kidney Verified 03/08/25 09:20 failure codeine AdvReac ADR-Vomitin Verified 03/08/25 09:20 g Review of Systems 2 Narrative: Constitutional symptoms: Negative except as documented in HPI. Skin symptoms: Negative except as documented in HPI. Eye symptoms: Negative except as documented in HPI. ENMT symptoms: Negative except as documented in HPI. Respiratory symptoms: Negative except as documented in HPI. Cardiovascular symptoms: Negative except as documented in HPI. Gastrointestinal symptoms: Negative except as documented in HPI. Genitourinary symptoms: Negative except as documented in HPI. Musculoskeletal symptoms: Negative except as documented in HPI. Neurologic symptoms: Negative except as documented in HPI. Psychiatric symptoms: Negative except as documented in HPI. Endocrine symptoms: Negative except as documented in HPI. PFSH ED 2 PFSH: Medical History (Updated 03/21/25 @ 13:38 by Мария Carter MD) Hypokalemia Enrolled in chronic care management History of seizures SOB (shortness of breath) Obesity Hypertension Chronic musculoskeletal pain Dyslipidemia Other insomnia Chronic kidney disease, unspecified CKD stage ESTHELA (obstructive sleep apnea) ASHD (arteriosclerotic heart disease) Anxiety Osteoarthritis of knees, bilateral Hypothyroidism Gout Refill allopurinol. Stable. Type 2 diabetes mellitus with diabetic chronic kidney disease, unspecified CKD stage, unspecified whether extermination inspector insulin use Surgical History Hx of eye surgery Hx of cataract extraction History of bilateral carpal tunnel release Hx of cholecystectomy Hx of hysterectomy 1972 History of lobectomy of lung 1966 Family History Son Clotting disorder CAD (coronary artery disease) Father CAD (coronary artery disease) Mother CAD (coronary artery disease) Stroke Lung disease Other TIA (transient ischemic attack) Denies family history of Diabetes Dementia Chronic kidney disease (CKD) Suicide Anesthesia complication Bleeding disorder Cancer Social History Smoking and tobacco/nicotine status: never used tobacco/nicotine Second hand smoke exposure: No Alcohol intake: never Substance/Drug Use: never Caregiver/support person: Yes (son) Lives independently: Yes Household members: children Marital status: / Current occupational status: retired Current gender identity: Female Special ivan needs: No Agree to transfusion: Yes Physical Exam 2 Narrative: EXAM NARRATIVE: General: Alert, no acute distress. Skin: Warm, dry. Head: Normocephalic, atraumatic. Neck: Supple, trachea midline. Eye: Extraocular movements are intact. Ears, nose, mouth and throat: Tacky oral mucosa Cardiovascular: Regular, Normal peripheral perfusion. Respiratory: Lungs are clear to auscultation, respirations are non-labored, breath sounds are equal, Symmetrical chest wall expansion. Gastrointestinal: Soft, Nontender, Non distended Musculoskeletal: Normal ROM, no deformity. Neurological: Alert and oriented, No focal neurological deficit observed. Psychiatric: Cooperative, appropriate mood & affect. Course 2 Vital Signs: Vital signs: Vital Signs Temperature 97.9 F 03/21/25 10:09 Pulse Rate 65 03/21/25 13:24 Respiratory Rate 18 03/21/25 13:24 Blood Pressure 105/68 03/21/25 13:24 Pulse Oximetry 96 03/21/25 13:24 Oxygen Delivery Me thod Nasal Cannula 03/21/25 13:24 Oxygen Flow Rate 3 03/21/25 13:24 MDM - Weakness Medical Decision Making Medical decision making: Differential diagnosis for patient presenting with generalized weakness including but not limited to and based on the above HPI, review of systems and physical exam: Sepsis. Dehydration. Renal failure. Electrolyte abnormalities. Anemia. Congestive heart failure. Hypotension. Coronary syndrome. Hepatitis. Cirrhosis. Infections such as pneumonia, urinary tract infection, [place] illness, Cellulitis, Viral infections including influenza and Covid-19. Workup: labwork and lab/exam driven imaging ordered to evaluate, rule in and rule out above pathologies. EKG: Time 10:20 AM. Rate 63. Normal sinus rhythm, nonspecific ST-T changes, no ectopy, normal NJ & QRS intervals, This was reviewed and interpreted by myself the ER physician at 10:25 AM Chest x-ray: Some chronic changes but no acute process. No infiltrate. No pneumothorax. This was reviewed and interpreted by myself the emergency room physician. I also reviewed the radiology report. Lab Review: Laboratory results were reviewed and interpreted by myself the emergency room physician. Mild leukocytosis. No anemia. Sodium is a bit low at 130. Potassium is 4.8. Patient has some acute on chronic renal insufficiency with a BUN/creatinine of 35 and 2.3. Her creatinine normally runs around 1.0-1.4. Urinalysis is negative for infection. No nitrate. No whites. No bacteria. CT the abdomen pelvis without contrast: This was done secondary to concern for renal failure to rule out any urinary obstruction or other sources of infection. This was negative. This was reviewed and interpreted by myself the emergency room physician. I also reviewed the radiology report. I reviewed the patient's medical record. 84-year-old female with a history of hip surgery about a month ago, obesity, chronic anticoagulation on Eliquis, type 2 diabetes mellitus, obstructive sleep apnea, coronary artery disease, hyperlipidemia, chronic kidney disease and gout Reexamination: Patient has improved blood pressure. She was able to get up to the bedside commode and go to the bathroom. No increased work of breathing. She is on 2 to 3 L nasal cannula. She says she has been on this for a while now. Not exactly sure why. Consultation: I spoke with Dr. Motley who is on-call for the hospitalist service who agrees to admission. Assessment and plan: Acute on chronic renal insufficiency Hypotension Dehydration ?She received 2 L of fluid initially. With her being hypotensive and had some concern she might be septic. However after workup she does not have leukocytosis. No lactic acidosis. No urinary tract infection. No signs of pneumonia. No signs of abdominal infection. Possibly just dehydration and renal insufficiency resulting in some low blood pressure and dizziness. Admitting to continue gentle hydration and repeat lab work tomorrow. -I discussed the patient with the hospitalist on-call who is admitting the patient. - Discussed findings and plan with patient. Answered any questions. - All laboratory values were reviewed and interpreted personally by myself, the ER physician - All imaging was reviewed and interpreted personally by myself, the ER physician. - Evaluation and treatment of this problem were appropriate in the emergency setting Lab Data 03/21/25 10:15 03/21/25 10:15 Radiology Impressions Chest X-Ray 03/21/25 10:13 IMPRESSION: 1. No acute cardiopulmonary finding. Abdomen/Pelvis CT 03/21/25 11:48 IMPRESSION: 1. No hydronephrosis in either kidney. No obstructing renal or ureteral calculi. Limited visualization of the distal ureters due to beam hardening artifact from RIGHT ELMO 2. Urine distended bladder. 3. Low-attenuation septated cystic lesion along the LEFT vaginal cuff may be ovarian in origin but indeterminate. This can be followed up with pelvic ultrasound 4. Prominent extrahepatic bile duct dilatation most likely physiologic postcholecystectomy. Recommend correlation with biliary function studies. If concern this can be followed up with MRCP. No prior comparisons Laboratory Results WBC 11.27 10^3/uL (3.29-11.43) 03/21/25 10:15 RBC 4.30 10^6/uL (3.85-5.65) 03/21/25 10:15 Hgb 13.00 g/dL (11.27-16.99) 03/21/25 10:15 Hct 41.3 % (36-47) 03/21/25 10:15 MCV 96.0 fl (85-98) 03/21/25 10:15 MCH 30.2 pg (27-33) 03/21/25 10:15 MCHC 31.5 g/dL (30-55) 03/21/25 10:15 RDW 13.9 % (12.1-15.1) 03/21/25 10:15 Plt Count 196 10^3/cmm (157-399) 03/21/25 10:15 MPV 10.5 fL (7.4-10.4) H 03/21/25 10:15 Neut % (Auto) 52.2 % 03/21/25 10:15 Lymph % (Auto) 15.2 % 03/21/25 10:15 [place] % (Auto) 9.1 % 03/21/25 10:15 Eos % (Auto) 21.5 % 03/21/25 10:15 Baso % (Auto) 0.5 % 03/21/25 10:15 Neut # (Auto) 5.88 10^3/uL (1.8-7.7) 03/21/25 10:15 Lymph # (Auto) 1.7 10^3/uL (0.8-4.8) 03/21/25 10:15 [place] # (Auto) 1.0 10^3/uL (0.2-0.9) H 03/21/25 10:15 Eos # (Auto) 2.4 10^3/uL (0.0-0.8) H 03/21/25 10:15 Baso # (Auto) 0.1 10^3/uL (0.0-0.1) 03/21/25 10:15 Nucleated RBC % (auto) 0 % 03/21/25 10:15 Nucleated RBCs # 0.0 /100WBC 03/21/25 10:15 Sodium 130 mmol/L (136-145) L 03/21/25 10:15 Potassium 4.8 mmol/L (3.5-5.1) 03/21/25 10:15 Chloride 98 mmol/L (98-107) 03/21/25 10:15 Carbon Dioxide 22 mmol/L (22-29) 03/21/25 10:15 Anion Gap 14.8 (5-19) 03/21/25 10:15 BUN 35 mg/dL (8-23) H 03/21/25 10:15 Creatinine 2.3 mg/dL (0.5-0.9) H 03/21/25 10:15 GFR Calculation Not Reportable 03/21/25 10:15 Glucose 100 mg/dL (65-115) 03/21/25 10:15 Calculated Osmolality 278 mOsm/kg (285-295) L 03/21/25 10:15 Lactic Acid 2.0 mmol/L (0.5-2.2) 03/21/25 10:15 Calcium 9.0 mg/dL (8.5-10.5) 03/21/25 10:15 Total Bilirubin 0.3 mg/dL (0.15-1.2) 03/21/25 10:15 AST 12 U/L (0-32) 03/21/25 10:15 ALT 9 U/L (0-33) 03/21/25 10:15 Alkaline Phosphatase 108 U/L (35-105) H 03/21/25 10:15 Total Protein 6.7 g/dL (6.6-8.7) 03/21/25 10:15 Albumin 3.1 g/dL (3.5-5.2) L 03/21/25 10:15 Globulin 3.6 g/dL (1.3-4.6) 03/21/25 10:15 Lipase 16 U/L (13-60) 03/21/25 10:55 Procalcitonin 0.64 ng/mL (0-0.5) H 03/21/25 10:15 Urine Color Yellow (Yellow) 03/21/25 11:03 Urine Appearance Clear (CLEAR) 03/21/25 11:03 Urine pH 5.0 (5-7) 03/21/25 11:03 Ur Specific [place] 1.017 (1.005-1.030) 03/21/25 11:03 Urine Protein 1+ (Negative) A 03/21/25 11:03 Urine Glucose (UA) Negative (Normal) 03/21/25 11:03 Urine Ketones Trace (Negative) 03/21/25 11:03 Urine Blood Negative (Negative) 03/21/25 11:03 Urine Nitrate Negative (Negative) 03/21/25 11:03 Urine Bilirubin Negative (Negative) 03/21/25 11:03 Urine Urobilinogen 1.0 mg/dL (Negative) 03/21/25 11:03 Ur Leukocyte Esterase Trace (Negative) A 03/21/25 11:03 Urine RBC 0-2 /hpf (0-2) 03/21/25 11:03 Urine WBC 0-5 /hpf (0-5) 03/21/25 11:03 Ur Squamous Epith Cells 0-5 /hpf (0-5) 03/21/25 11:03 Amorphous Sediment Not Reportable 03/21/25 11:03 Urine Bacteria None seen /hpf (NONE) 03/21/25 11:03 Hyaline Casts 11.97 /lpf 03/21/25 11:03 All radiology interpretation(s) finalized by discharge Discharge Plan Discharge Patient Disposition: Placed in Observation Clinical Impression: Acute on chronic renal insufficiency, Hypotension, Dehydration Coding Level of Care Code ED Furniture Removalist'S Assistant for Deng Duggan
[2025-03-21 10:30] LABS: Hematocrit 41.3 % (36-47); Hemoglobin 13.00 g/dL (11.27-16.99); Mean Corpuscular HGB Conc 31.5 g/dL (30-55); Mean Corpuscular Hemoglobin 30.2 pg (27-33); Mean Corpuscular Volume 96.0 fl (85-98); Nucleated Red Blood Cells % 0 %; Platelet Count 196 10^3/cmm (157-399); Red Blood Count 4.30 10^6/uL (3.85-5.65); White Blood Count 11.27 10^3/uL (3.29-11.43)
--- NOTE | 2025-03-21 10:33 | PC.PHAR ---
Pt is now a resident at [facility]
[2025-03-21 10:47] LABS: Alanine Aminotransferase 9 U/L (0-33); Albumin Level 3.1 g/dL (3.5-5.2); Alkaline Phosphatase 108 U/L (35-105); Anion Gap 14.8 (5-19); Aspartate Amino Transferase 12 U/L (0-32); Blood Urea Nitrogen 35 mg/dL (8-23); Calcium 9.0 mg/dL (8.5-10.5); Carbon Dioxide 22 mmol/L (22-29); Chloride 98 mmol/L (98-107); Creatinine Clr Calc Pharmacy 24.5297; Globulin 3.6 g/dL (1.3-4.6); Glucose 100 mg/dL (65-115); Osmolality Calculated 278 mOsm/kg (285-295); Potassium 4.8 mmol/L (3.5-5.1); Sodium 130 mmol/L (136-145); Total Protein 6.7 g/dL (6.6-8.7)
[2025-03-21 10:48] LABS: Lactic Sepsis W/Reflex 2.0 mmol/L (0.5-2.2)
[2025-03-21 10:54] LABS: Procalcitonin 0.64 ng/mL (0-0.5)
[2025-03-21 11:14] LABS: Glucose Urine UA Negative (Normal); Nitrate Urine Negative (Negative); Specific Gravity, Urine 1.017 (1.005-1.030)
--- NOTE | 2025-03-21 11:48 | CT_ITS ---
WS: [id number] CT ABDOMEN PELVIS TECHNIQUE: Noncontrast CT of the abdomen and pelvis with coronal and sagittal reformatted images. CLINICAL INFORMATION: Renal failure, r/o obstructive uropathy COMPARISON: None. DLP: 924.[address] scans at [facility] use at least one of these dose optimization techniques: automated exposure control; mA and/or kV adjustment per patient size (includes targeted exams where dose is matched to clinical indication); or iterative reconstruction. FINDINGS: RIGHT ELMO degrades images in the pelvis. No hydronephrosis in either kidney. Somewhat limited evaluation of the distal ureters in the pelvis due to beam hardening artifact from ELMO. No evidence of obstructing renal or ureteral calculi where visualized. Tiny nonobstructing RIGHT calyceal tip calculus. V ascular calcification. Pelvic phleboliths. Urine distended bladder otherwise normal in appearance. Slight atelectasis in the lung bases. Normal noncontrast liver. Prior cholecystectomy. Extrahepatic bile duct dilatation likely physiologic postcholecystectomy. Fatty atrophy of the pancreas. Splenic artery calcification. Noncontrast spleen. Normal adrenal glands. Normal caliber abdominal aorta. Sigmoid diverticulosis. Normal appendix. No evidence of small or large bowel obstruction. Presumed prior hysterectomy. Lobulated low-attenuation cystic and septated lesion along the vaginal cuff measuring 3.3 x 4.1 cm. This is i ndeterminate and could be followed up with pelvic ultrasound on an elective basis. This may be ovarian in origin. Recommend correlation with surgical history. CT/CT abdomen pelvis con [id number] IMPRESSION: 1. No hydronephrosis in either kidney. No obstructing renal or ureteral calcul i. Limited visualization of the distal ureters due to beam hardening artifact f rom RIGHT ELMO 2. Urine distended bladder. 3. Low-attenuation septated cystic lesion along the LEFT vaginal cuff may be o varian in origin but indeterminate. This can be followed up with pelvic ultraso und 4. Prominent extrahepatic bile duct dilatation most likely physiologic postcho lecystectomy. Recommend correlation with biliary function studies. If concern this can be followed up with MRCP. No prior comparisons
[2025-03-21 12:05] LABS: UA Slide Review UA Slide Review Perf
[2025-03-21 12:32] LABS: Lipase 16 U/L (13-60)
--- NOTE | 2025-03-21 14:51 | PM.HP ---
Providers/Chief Complaint Primary Care Provider: IVET Mayorga Chief Complaint: Hypotension History of Present Illness Catherine Seymour is a 84 year old female with past medical history of chronic anticoagulation, type 2 diabetes, sleep apnea CAD hyperlipidemia CKD who presented with complaints of weakness dizziness hypotension. She recently treated with UTI. In the ER she was noted to have low blood pressure. She responded to fluids. She also had elevated creatinine. Imaging suggestive of pneumonia. She did have a recent orthopedic procedure right hip arthroplasty. She did report productive cough of yellow sputum Review of Systems General: Reports: 10 or more systems reviewed and unremarkable except in HPI and below Resp: Reports: dyspnea and productive cough Musc: Reports: joint pain Medications/Allergies Home Medications ?Medication ?Instructions ?Recorded ?Confirmed ?Last Taken ?Type diphenhydramine HCl 25 mg capsule 25 mg PO .bedtime PRN sleep 12/02/20 03/21/25 Unknown History (Benadryl) levothyroxine 112 mcg tablet 112 mcg PO DAILY #90 tabs 11/13/24 03/21/25 03/21/25 Rx auto-titrating cpap 9-13cm #1 ea 11/29/24 03/21/25 Unknown Rx triamcinolone acetonide 0.1 % 1 applic topical BID #80 grams 02/09/25 03/21/25 03/21/25 Rx topical cream amitriptyline 50 mg tablet 50 mg PO .qhs 02/23/25 03/21/25 03/20/25 History amlodipine 10 mg tablet 10 mg PO DAILY 02/23/25 03/21/25 03/20/25 History atenolol 50 mg tablet 50 mg PO BID 02/23/25 03/21/25 03/20/25 History irbesartan 150 mg tablet 150 mg PO DAILY 02/23/25 03/21/25 03/20/25 History isosorbide mononitrate 30 mg 30 mg PO DAILY 02/23/25 03/21/25 03/20/25 History tablet,extended release 24 hr potassium chloride 20 mEq 20 meq PO BID 02/23/25 03/21/25 03/21/25 History tablet,extended release apixaban 2.5 mg tablet (Eliquis) 2.5 mg PO BID 30 days #60 tabs 02/26/25 03/21/25 03/21/25 Rx acetaminophen 325 mg tablet 650 mg PO .Q6H PRN pain/increased 03/21/25 03/21/25 Unknown History temp bisacodyl 10 mg rectal suppository 10 mg [place] DAILY PRN Constipation 03/21/25 03/21/25 Unknown History (Dulcolax (bisacodyl)) hydrocodone 5 mg-acetaminophen 325 1 - 2 tab PO .Q4H 03/21/25 03/21/25 03/20/25 History mg tablet Allergies Allergy/AdvReac Type Severity Reaction Status Date / Time morphine Allergy Severe ALGY-Anaphy Verified 03/08/25 09:20 laxis Penicillins Allergy Severe ALGY-Anaphy Verified 03/08/25 09:20 laxis ciprofloxacin (From Cipro) Allergy Unknown Verified 03/08/25 09:20 NSAIDS (Non-Steroidal Allergy Unknown Verified 03/08/25 09:20 Anti-Inflamma hydrochlorothiazide AdvReac Severe kidney Verified 03/08/25 09:20 failure codeine AdvReac ADR-Vomitin Verified 03/08/25 09:20 g PFSH Acute PFSH: Medical History (Updated 03/21/25 @ 14:55 by Elisa Motley MD) Hypokalemia Enrolled in chronic care management History of seizures SOB (shortness of breath) Obesity Hypertension Chronic musculoskeletal pain Dyslipidemia Other insomnia Chronic kidney disease, unspecified CKD stage ESTHELA (obstructive sleep apnea) ASHD (arteriosclerotic heart disease) Anxiety Osteoarthritis of knees, bilateral Hypothyroidism Gout Refill allopurinol. Stable. Type 2 diabetes mellitus with diabetic chronic kidney disease, unspecified CKD stage, unspecified whether senior living insulin use Surgical History Hx of eye surgery Hx of cataract extraction History of bilateral carpal tunnel release Hx of cholecystectomy Hx of hysterectomy 1972 History of lobectomy of lung 1966 Family History Son Clotting disorder CAD (coronary artery disease) Father CAD (coronary artery disease) Mother CAD (coronary artery disease) Stroke Lung disease Other TIA (transient ischemic attack) Denies family history of Diabetes Dementia Chronic kidney disease (CKD) Suicide Anesthesia complication Bleeding disorder Cancer Social History Smoking and tobacco/nicotine status: never used tobacco/nicotine Second hand smoke exposure: No Alcohol intake: never Substance/Drug Use: never Caregiver/support person: Yes (son) Lives independently: Yes Household members: children Marital status: / Current occupational status: retired Current gender identity: Female Special ivan needs: No Agree to transfusion: Yes Vitals/I&O/Wt Last Vital Signs Temp 97.9 F 03/21/25 10:09 Pulse 64 03/21/25 14:45 Resp 16 03/21/25 14:45 BP 118/69 03/21/25 14:45 Pulse Ox 93 03/21/25 14:45 O2 Del Method Nasal Cannula 03/21/25 14:45 O2 Flow Rate 3 03/21/25 14:45 03/20/25 03/21/25 03/21/25 22:59 06:59 14:59 Intake Total 1999 Balance 1999 Weight last 48 hrs Weight 220 lb Physical Exam Const: COMMON NORMALS: no acute distress and patient oriented x3 Resp: COMMON NORMALS: normal respiratory effort, No retractions and No use of accessory muscles Cardio: COMMON NORMALS: no JVD, regular rate and regular rhythm GI: COMMON NORMALS: Normal to inspection, nondistended, normoactive bowel sounds present Extremity: NARRATIVE EXTREMITY EXAM: no edema Data 03/21/25 10:15 03/21/25 10:15 Micro: Microbiology 03/21/25 10:50 Blood Culture - Preliminary Blood SPECIMEN COLLECTED 03/21/25 10:55 Blood Culture - Preliminary Blood SPECIMEN COLLECTED A&P Assessment and plan 1. Pneumonia: 2. Type 2 diabetes mellitus with diabetic chronic kidney disease, unspecified CKD stage, unspecified whether termite control service representative insulin use: 3. Chronic kidney disease, unspecified CKD stage: 4. Acute on chronic renal insufficiency: 5. Dehydration: Plan: #CAP #hypoxemia --continue O2, ceftriaxone, azithromycin #acute on ckd --likely prerenal , ivf, repeat labs #recent hip replacement --prn analgesics #hypotension --likely 2/2 low volume #DM --fsbs, ssi #hypothyroidism --restart replacement DVT: eliquis PDMP PDMP Reviewed: Not Reviewed Attestations Medical Necessity Statement*: gutierrez, pneumonia, needs ivf and abx Coding Level of Care Code 54363 Diagnoses Pneumonia J18.9 Type 2 diabetes mellitus with diabetic chronic kidney disease, unspecified CKD stage, unspecified whether senior living insulin use E11.22 Diabetes mellitus type: type 2 Diabetes mellitus termite control service representative insulin use: unspecified termite control service representative insulin use status Diabetes mellitus complication status: with kidney complications Diabetes mellitus complication detail: with chronic kidney disease Chronic kidney disease stage: unspecified stage Chronic kidney disease, unspecified CKD stage N18.9 Chronic kidney disease stage: unspecified stage Acute on chronic renal insufficiency N28.9; N18.9 Dehydration E86.0
[2025-03-21] MEDS: cefTRIAXone 1,000 mg SDV 1000 MG IVP (15:19)
[2025-03-22] VITALS: BP 97/58; PULSE 67; RESP 17; TEMP 37.1; O2SAT 92
[2025-03-22 03:37] LABS: Hematocrit 38.4 % (36-47); Hemoglobin 11.90 g/dL (11.27-16.99); Mean Corpuscular HGB Conc 31.0 g/dL (30-55); Mean Corpuscular Hemoglobin 30.2 pg (27-33); Mean Corpuscular Volume 97.5 fl (85-98); Nucleated Red Blood Cells % 0 %; Platelet Count 189 10^3/cmm (157-399); Red Blood Count 3.94 10^6/uL (3.85-5.65); White Blood Count 10.64 10^3/uL (3.29-11.43)
[2025-03-22 04:00] VITALS: BP 100/58; PULSE 65; RESP 16; TEMP 37.1; O2SAT 92
[2025-03-22 04:00] LABS: Alanine Aminotransferase 9 U/L (0-33); Albumin Level 2.7 g/dL (3.5-5.2); Alkaline Phosphatase 101 U/L (35-105); Anion Gap 15.9 (5-19); Aspartate Amino Transferase 14 U/L (0-32); Blood Urea Nitrogen 30 mg/dL (8-23); Calcium 8.7 mg/dL (8.5-10.5); Carbon Dioxide 19 mmol/L (22-29); Chloride 107 mmol/L (98-107); Creatinine Clr Calc Pharmacy 33.1873; Globulin 3.2 g/dL (1.3-4.6); Glucose 90 mg/dL (65-115); Osmolality Calculated 290 mOsm/kg (285-295); Potassium 4.9 mmol/L (3.5-5.1); Sodium 137 mmol/L (136-145); Total Protein 5.9 g/dL (6.6-8.7)
[2025-03-22 07:54] VITALS: BP 119/67; PULSE 65; RESP 17; TEMP 36.4; O2SAT 90
[2025-03-22 11:56] VITALS: BP 143/92; PULSE 74; RESP 18; TEMP 36.5; O2SAT 91
[2025-03-22] MEDS: cefTRIAXone 1,000 mg SDV 1000 MG IVP (13:58)
--- NOTE | 2025-03-22 14:52 | PM.PN ---
Subjective Subjective: Patient presents with weakness. She reports to me that she passed out twice yesterday. She reports that she has passed out successively every couple of years since she was young. She says a age 42 she had a complete workup done and there was no cause found. She does admit to being more weak after her hip surgery. Patient feels well today without complaints Vitals/I&O/Wt Last Vital Signs Temp 97.7 F 03/22/25 11:56 Pulse 74 03/22/25 11:56 Resp 18 03/22/25 11:56 BP 143/92 03/22/25 11:56 Pulse Ox 91 03/22/25 11:56 O2 Del Method Nasal Cannula 03/22/25 04:00 O2 Flow Rate 1 03/22/25 04:00 03/21/25 03/22/25 03/22/25 22:59 06:59 14:59 Intake Total 981.667 / 2981.667 1537.5 / 4519.167 1235 / 1235 Output Total 350 / 350 1200 / 1550 400 / 400 Balance 631.667 / 2631.667 337.5 / 2969.167 835 / 835 Weight last 48 hrs Weight 99.291 kg Weight 99.79 kg Weight 99.79 kg Physical Exam Narrative: Alert and oriented to person place time and situation Neuroexam is nonfocal Heart is regular normal S1-S2 without murmurs clicks gallops or rubs Lungs are diminished throughout without wheezes rales or rhonchi abdomen is soft obese nontender nondistended normal active bowel sounds extremities no clubbing cyanosis or edema Data 03/22/25 02:57 03/22/25 02:57 Micro: Microbiology 03/21/25 10:55 Blood Culture - Preliminary Blood NEGATIVE TO DATE 03/21/25 10:50 Blood Culture - Preliminary Blood NEGATIVE TO DATE A&P Assessment and plan 1. Hypotension: Patient takes amlodipine atenolol Irbesartan and isosorbide at [facility] all of these are being held at this time. Will recommend stopping Norvasc and likely isosorbide on discharge 2. Dehydration: Continue fluids resuscitation 3. Acute on chronic renal insufficiency: Most likely due to dehydration since it is improving now with hydration Plan: Maintain off antihypertensives. Continue fluid resuscitation Patient was placed on Rocephin and azithromycin for suspected pneumonia although patient does not have a white count and clinically I do not suspect. The chest x-ray was negative for acute changes although she does have some left upper lobe chronic changes. Of note her urine still had trace leukocyte esterase. We may need to continue a longer course of antibiotics for UTI and perhaps with her history preventative medication for UTI PDMP PDMP Reviewed: Not Reviewed Attestations Medical Necessity Statement*: Patient with significant hypotension. Patient requires IV fluids for dehydration and assessment of her cardiac status. Coding Level of Care Code Acute Code for [facility] Diagnoses Hypotension I95.9 Dehydration E86.0 Acute on chronic renal insufficiency N28.9; N18.9
[2025-03-22 16:59] VITALS: BP 149/90; PULSE 83; RESP 17; TEMP 36.4; O2SAT 94
[2025-03-22 20:00] VITALS: BP 131/74; PULSE 73; RESP 16; TEMP 36.4; O2SAT 91
[2025-03-23] VITALS: BP 165/87; PULSE 80; RESP 17; TEMP 36.6; O2SAT 96
[2025-03-23] MEDS: LORazepam 1 MG/0.5 ML injection 0.5 MG IVP (01:54)
--- NOTE | 2025-03-23 02:02 | PC.NURSE ---
pt requesting immodium for loose and frequent stool, BM pudding consistency, also pt c/o feeling of withdrawal from hydrocodone. pt expressed having the same feeling the last time she had to stop taking hydrocodone. María Wagner notified, stated that Dr Singh did not re-start pt hydrocodone therefore Dr. Singh must have a reason. this nurse told Dr. Daniel that pt is not c/o pain and not asking for hydrocodone but just pt is feeling withdrawal symptoms. order received for benadryl and Ativan one time along with stool sample for C-diff
[2025-03-23 02:39] LABS: C.Diff PCR (Lab) NEGATIVE (Negative)
[2025-03-23 04:00] VITALS: BP 138/72; PULSE 69; RESP 17; TEMP 36.7; O2SAT 95
[2025-03-23 04:58] LABS: Hematocrit 39.5 % (36-47); Hemoglobin 12.60 g/dL (11.27-16.99); Mean Corpuscular HGB Conc 31.9 g/dL (30-55); Mean Corpuscular Hemoglobin 30.4 pg (27-33); Mean Corpuscular Volume 95.4 fl (85-98); Nucleated Red Blood Cells % 0 %; Platelet Count 174 10^3/cmm (157-399); Red Blood Count 4.14 10^6/uL (3.85-5.65); White Blood Count 10.60 10^3/uL (3.29-11.43)
[2025-03-23 05:24] LABS: Alanine Aminotransferase 8 U/L (0-33); Albumin Level 3.1 g/dL (3.5-5.2); Alkaline Phosphatase 119 U/L (35-105); Anion Gap 15.9 (5-19); Aspartate Amino Transferase 20 U/L (0-32); Blood Urea Nitrogen 22 mg/dL (8-23); Calcium 9.1 mg/dL (8.5-10.5); Carbon Dioxide 21 mmol/L (22-29); Chloride 109 mmol/L (98-107); Creatinine Clr Calc Pharmacy 37.6122; Globulin 3.4 g/dL (1.3-4.6); Glucose 110 mg/dL (65-115); Osmolality Calculated 296 mOsm/kg (285-295); Potassium 4.9 mmol/L (3.5-5.1); Sodium 141 mmol/L (136-145); Total Protein 6.5 g/dL (6.6-8.7)
[2025-03-23 07:48] VITALS: BP 156/80; PULSE 78; RESP 16; TEMP 36.7; O2SAT 97
--- NOTE | 2025-03-23 10:01 | PC.SOCIAL ---
*IMM* updated, IMM dated, initialled and placed in chart. Patient received copy.
--- NOTE | 2025-03-23 10:47 | P.DS_ITS ---
Discharge Providers Date of Admission: 03/21/25 17:08 Date of Discharge: March 23, 2025 Attending Provider at Admission: Elisa Motley MD Attending Provider at Discharge: Cristi Darby DO Primary Care Provider: IVET Mayorga Diagnoses at Discharge Discharge Diagnosis 1. Hypotension: 2. Dehydration: 3. Acute on chronic renal insufficiency: Reason for Visit Reason for Visit: Hypotension Brief History: Patient presented with weakness dizziness and hypotensive to the emergency room. The patient had just completed a 10-day course of Macrobid for UTI. She was admitted due to significant hypotension with blood pressure systolically in the 80s. Hospital Course Hospital Course Patient was admitted to the general medical floor. Her 4 antihypertensives were all held. She was given IV fluid resuscitation. The following day she felt markedly improved. Her blood pressure remained in a normal range and no longer hypotensive. She was placed on IV antibiotics for unclear reason. No pneumonia was seen on chest x-ray and CT of abdomen and pelvis did not show any abnormalities. Her urine showed 1+ leukocyte esterase and 1+ protein otherwise negative with hyaline cast. Patient's dizziness and syncope/near syncope is most likely due to low blood pressure caused by 4 antihypertensives. Plan: * Stop Norvasc, stop isosorbide * Decrease atenolol to 25 mg twice daily * Continue irbesartan Patient's potassium level was reaching 4.9. I noticed she is on replacement this could be discontinued. At this time I would hold off on treatment for UTI as she just finished a course. No other identifiable infection. Physical Exam Narrative: Alert and oriented to person place time and situation vital signs blood pressure 156/80 pulse 78 respiration 16 afebrile at 98.0 and oxygen sat 97% on room air Neuroexam is nonfocal Heart is regular normal S1-S2 short systolic murmur heard at the left lower sternal border. Lungs are diminished throughout without wheezes rales or rhonchi abdomen is soft obese nontender nondistended normal active bowel sounds extremities no clubbing cyanosis or edema Thoracic kyphosis Discharge Data Studies Completed and Pending Completed Studies During Hospitalization Category Date Time Status CT abdomen pelvis wo con [id number] Stat Cat Scan 03/21/25 11:48 Completed XR chest 1V portable [id number] Stat Exams 03/21/25 10:13 Completed Pending at discharge Category Date Time Status Blood Culture Stat Lab 03/21/25 10:50 Results Complete Blood Count w/Auto AM LABS Lab 03/24/25 04:00 Ordered Comprehensive Metabolic Panel AM LABS Lab 03/24/25 04:00 Ordered Radiology Impressions Chest X-Ray 03/21/25 10:13 IMPRESSION: 1. No acute cardiopulmonary finding. Abdomen/Pelvis CT 03/21/25 11:48 IMPRESSION: 1. No hydronephrosis in either kidney. No obstructing renal or ureteral calculi. Limited visualization of the distal ureters due to beam hardening artifact from RIGHT ELMO 2. Urine distended bladder. 3. Low-attenuation septated cystic lesion along the LEFT vaginal cuff may be ovarian in origin but indeterminate. This can be followed up with pelvic ultrasound 4. Prominent extrahepatic bile duct dilatation most likely physiologic postcholecystectomy. Recommend correlation with biliary function studies. If concern this can be followed up with MRCP. No prior comparisons Laboratory Results WBC 10.60 10^3/uL (3.29-11.43) 03/23/25 04:26 RBC 4.14 10^6/uL (3.85-5.65) 03/23/25 04:26 Hgb 12.60 g/dL (11.27-16.99) 03/23/25 04:26 Hct 39.5 % (36-47) 03/23/25 04:26 MCV 95.4 fl (85-98) 03/23/25 04:26 MCH 30.4 pg (27-33) 03/23/25 04:26 MCHC 31.9 g/dL (30-55) 03/23/25 04:26 RDW 13.5 % (12.1-15.1) 03/23/25 04:26 Plt Count 174 10^3/cmm (157-399) 03/23/25 04:26 MPV 10.3 fL (7.4-10.4) 03/23/25 04:26 Neut % (Auto) 44.5 % 03/23/25 04:26 Lymph % (Auto) 22.5 % 03/23/25 04:26 Ashley % (Auto) 8.8 % 03/23/25 04:26 Eos % (Auto) 21.5 % 03/23/25 04:26 Baso % (Auto) 0.7 % 03/23/25 04:26 Neut # (Auto) 4.72 10^3/uL (1.8-7.7) 03/23/25 04:26 Lymph # (Auto) 2.4 10^3/uL (0.8-4.8) 03/23/25 04:26 Ashley # (Auto) 0.9 10^3/uL (0.2-0.9) 03/23/25 04:26 Eos # (Auto) 2.3 10^3/uL (0.0-0.8) H 03/23/25 04:26 Baso # (Auto) 0.1 10^3/uL (0.0-0.1) 03/23/25 04:26 Nucleated RBC % (auto) 0 % 03/23/25 04:26 Nucleated RBCs # 0.0 /100WBC 03/23/25 04:26 Sodium 141 mmol/L (136-145) 03/23/25 04:26 Potassium 4.9 mmol/L (3.5-5.1) 03/23/25 04:26 Chloride 109 mmol/L (98-107) H 03/23/25 04:26 Carbon Dioxide 21 mmol/L (22-29) L 03/23/25 04:26 Anion Gap 15.9 (5-19) 03/23/25 04:26 BUN 22 mg/dL (8-23) 03/23/25 04:26 Creatinine 1.5 mg/dL (0.5-0.9) H 03/23/25 04:26 GFR Calculation Not Reportable 03/23/25 04:26 Glucose 110 mg/dL (65-115) 03/23/25 04:26 POC Glucose 97 mg/dL (70-110) 03/23/25 10:38 Calculated Osmolality 296 mOsm/kg (285-295) H 03/23/25 04:26 Lactic Acid 2.0 mmol/L (0.5-2.2) 03/21/25 10:15 Calcium 9.1 mg/dL (8.5-10.5) 03/23/25 04:26 Total Bilirubin 0.2 mg/dL (0.15-1.2) 03/23/25 04:26 AST 20 U/L (0-32) 03/23/25 04:26 ALT 8 U/L (0-33) 03/23/25 04:26 Alkaline Phosphatase 119 U/L (35-105) H 03/23/25 04:26 Total Protein 6.5 g/dL (6.6-8.7) L 03/23/25 04:26 Albumin 3.1 g/dL (3.5-5.2) L 03/23/25 04:26 Globulin 3.4 g/dL (1.3-4.6) 03/23/25 04:26 Lipase 16 U/L (13-60) 03/21/25 10:55 Procalcitonin 0.64 ng/mL (0-0.5) H 03/21/25 10:15 Urine Color Yellow (Yellow) 03/21/25 11:03 Urine Appearance Clear (CLEAR) 03/21/25 11:03 Urine pH 5.0 (5-7) 03/21/25 11:03 Ur Specific [place] 1.017 (1.005-1.030) 03/21/25 11:03 Urine Protein 1+ (Negative) A 03/21/25 11:03 Urine Glucose (UA) Negative (Normal) 03/21/25 11:03 Urine Ketones Trace (Negative) 03/21/25 11:03 Urine Blood Negative (Negative) 03/21/25 11:03 Urine Nitrate Negative (Negative) 03/21/25 11:03 Urine Bilirubin Negative (Negative) 03/21/25 11:03 Urine Urobilinogen 1.0 mg/dL (Negative) 03/21/25 11:03 Ur Leukocyte Esterase Trace (Negative) A 03/21/25 11:03 Urine RBC 0-2 /hpf (0-2) 03/21/25 11:03 Urine WBC 0-5 /hpf (0-5) 03/21/25 11:03 Ur Squamous Epith Cells 0-5 /hpf (0-5) 03/21/25 11:03 Amorphous Sediment Not Reportable 03/21/25 11:03 Urine Bacteria None seen /hpf (NONE) 03/21/25 11:03 Hyaline Casts 11.97 /lpf 03/21/25 11:03 C. difficile (PCR) Negative (Negative) 03/23/25 01:45 Vitals Last Vital Signs Temp 98.0 F 03/23/25 07:48 Pulse 78 03/23/25 07:48 Resp 16 03/23/25 07:48 BP 156/80 03/23/25 07:48 Pulse Ox 97 03/23/25 07:48 O2 Del Method Room Air 03/23/25 07:48 O2 Flow Rate 1 03/23/25 00:00 Discharge Plan Discharge Patient Disposition: Xfer SNF Condition: Stable Prescriptions: New nitrofurantoin monohyd/m-cryst [Macrobid] 100 mg capsule 100 mg PO BID 3 Days Qty: 6 0RF Rx Instructions: must administer with a meal/food Continued diphenhydramine HCl [Benadryl] 25 mg capsule 25 mg PO .bedtime PRN (Reason: sleep) levothyroxine 112 mcg tablet 112 mcg PO DAILY Qty: 90 1RF (DME) auto-titrating cpap 9-13cm See Rx Instructions .Route .MEDSUPPLY Qty: 1 0RF Rx Instructions: As directed triamcinolone acetonide 0.1 % cream 1 applic topical BID Qty: 80 1RF Rx Instructions: to hands and upper arms amitriptyline 50 mg tablet 50 mg PO .qhs irbesartan 150 mg tablet 150 mg PO DAILY Eliquis 2.5 mg tablet 2.5 mg PO BID 30 Days Qty: 60 0RF acetaminophen 325 mg Tablet 650 mg PO .Q6H PRN (Reason: pain/increased temp) bisacodyl [Dulcolax (bisacodyl)] 10 mg Suppository 10 mg W[place] DAILY PRN (Reason: Constipation) Rx Instructions: if no results from Milk of Magnesia hydrocodone-acetaminophen 5-325 mg tablet 1 - 2 tab PO .Q4H Changed atenolol 50 mg tablet 25 mg PO BID Qty: 30 0RF Discontinued isosorbide mononitrate 30 mg tablet extended release 24 hr 30 mg PO DAILY amlodipine 10 mg tablet 10 mg PO DAILY potassium chloride 20 mEq tablet extended release 20 meq PO BID [employer] OK for DC: Hospitalist Discharge Order = DC NOW: Discharge Order (Routine); Ordered 03/23/25 Ordered By: Cristi Darby Referrals: [facility] [Outside] Kaity Flowers FNP [Primary Care Provider, Family Practice] Discharge Diet: Regular Discharge Activity: Increase activity as tolerated Patient Instructions: Opioid Safety, Patient Portal & Jovany Instructions Plan of Treatment: Patient's dizziness and syncope/near syncope is most likely due to low blood pressure or orthostatic blood pressure. Plan is to stop 2 antihypertensives including Norvasc and isosorbide. And I have decreased her atenolol in half. In this patient with multiple episodes of dizziness lightheadedness and near syncope would allow permissive hypertension for the next 2 weeks before increasing or restarting any other medications. Discharge Attestations Time Spent in Discharge Care*: greater than 30 min Quality Metrics Clinical Quality Measures [ No reported AMI, CVA or VTE this stay] Coding Level of Care Code Acute Code for [facility] Diagnoses Hypotension I95.9 Dehydration E86.0 Acute on chronic renal insufficiency N28.9; N18.9
[2025-03-23 11:25] VITALS: BP 147/77; PULSE 76; RESP 15; TEMP 36.6; O2SAT 91
== END 2025-03-23 13:55 | disposition skilled nursing facility (03) | DRG 315 ==
LOC: ER 14:53 → MEDSURG 17:22 → ER IP 03-22 04:43 → MEDSURG 03-22 04:43
PROVIDERS: Internal Medicine; Admitting Provider Internal Medicine; Emergency Provider Emergency Medicine; PCP Nurse Practitioner Family; Visit Provider Internal Medicine
DX: I95.9 Hypotension, unspecified (principal); N17.9 Acute kidney failure, unspecified; E86.0 Dehydration; E11.22 Type 2 diabetes mellitus with diabetic chronic kidney disease; I12.9 Hypertensive chronic kidney disease with stage 1 through stage 4 chronic kidney disease, or unspecified chronic kidney disease; N18.9 Chronic kidney disease, unspecified; M40.204 Unspecified kyphosis, thoracic region; E66.9 Obesity, unspecified; Z68.30 Body mass index [BMI] 30.0-30.9, adult; G47.33 Obstructive sleep apnea (adult) (pediatric); I25.10 Atherosclerotic heart disease of native coronary artery without angina pectoris; E78.5 Hyperlipidemia, unspecified; M10.9 Gout, unspecified; G89.29 Other chronic pain; M79.18 Myalgia, other site; F41.9 Anxiety disorder, unspecified; Z96.641 Presence of right artificial hip joint; M17.0 Bilateral primary osteoarthritis of knee; Z79.01 Long term (current) use of anticoagulants; Z79.891 Long term (current) use of opiate analgesic; Z87.440 Personal history of urinary (tract) infections; Z90.2 Acquired absence of lung [part of]
CPT/HCPCS: 36415; 36416; 71045; 74176; 80053; 81001; 82962; 83605; 83690; 84145; 85025; 87040; 87493; 93005; 96365; 96375; 99285; J0456; J0696; J2060; J7030; J7050; J9999

== ENCOUNTER → 2025-04-05 14:00 | Outpatient (BNVA) | payer MEDICARE, SELFPAY | PROVIDERS: PCP Nurse Practitioner Family; Visit Provider Orthopaedic Surgery | DX: Z98.890 Other specified postprocedural states (principal) | CPT/HCPCS: 73502; 99024 ==

== ENCOUNTER → 2025-05-22 14:29 | Outpatient (BNVA) | payer MEDICARE, SELFPAY | PROVIDERS: PCP Nurse Practitioner Family; Visit Provider Orthopaedic Surgery | DX: Z98.890 Other specified postprocedural states (principal) | CPT/HCPCS: 73502; 99024 ==